=== PATIENT | male | born 1960 | race Caucasian/White ===

== ENCOUNTER → 2022-05-03 11:06 | Outpatient (BNVA) | payer OTHER, SELFPAY | PROVIDERS: Visit Provider Internal Medicine Cardiovascular Disease | DX: R06.02 Shortness of breath (principal); I48.20 Chronic atrial fibrillation, unspecified; I50.33 Acute on chronic diastolic (congestive) heart failure; N18.9 Chronic kidney disease, unspecified; Z79.01 Long term (current) use of anticoagulants; R07.9 Chest pain, unspecified | CPT/HCPCS: 80048; 83880; 84443; 85025 ==

== ENCOUNTER 2022-05-24 06:50 | Outpatient (CLI) | payer OTHER, SELFPAY ==
[2022-05-24 07:08] VITALS: BMI 51.1
--- NOTE | 2022-05-24 07:10 | ECG_ITS ---
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 Interpretive Statements NAME OF STUDY: TREADMILL STRESS TEST INDICATION: afib, PROCEDURE: At the baseline, the patient's blood pressure was 144/90 with a heart rate of 132. The baseline electrocardiogram showed atrial fibrillation with rapid ventricular rate of 132 bpm the patient exercised for 2 minutes and 59 seconds on a standard [place] protocol. Patient attained a maximum heart rate of 197 beats per minute(123% of the maximum predicted heart rate) with a blood pressure at the peak exercise of 149/113 mm Hg. The EKG at the peak exercise revealed no significant changes. Patient did not have any chest pain or any significant cardiac arrhythmias with the exercise During the recovery phase, there were no new changes. Blood pressure at the end of the recovery phase was 142/110 mm Hg with a heart rate of 146 per minute. CONCLUSION: 1. No significant ischemic changes with the treadmill exercise 2. Impaired exercise tolerance, attained a maximal 4.6 METs 3. Patient was found to be in atrial fibrillation with rapid ventricular rate at the baseline The study is inconclusive because of the arrhythmia. Consider doing a pharmacological stress test, once the heart rate is under control Electronically Signed On 05-25-2022 23:48:39 CDT by Cayden Philippe M.D. [email or web address]
[2022-05-24 07:38] VITALS: BP 142/110; PULSE 121
== END 2022-05-24 06:51 | disposition home or self-care (01) ==
LOC: CDL 06:59
PROVIDERS: Visit Provider Internal Medicine Cardiovascular Disease
DX: I48.91 Unspecified atrial fibrillation (principal)
CPT/HCPCS: 93017

== ENCOUNTER 2022-06-07 08:08 | Outpatient (CLI) | payer OTHER, SELFPAY ==
--- NOTE | 2022-06-07 08:45 | USCV_ITS ---
Guillermo, Michael Age: 61 Gender: M : 1960 Exam Date: 06/07/2022 08:53 Ordering Phys: Cayden Philippe MD ([email or web address]) Technologist: Exam Location: [facility] – [place] Indication: afib BP: 130 / 89 HR: 95 Rhythm: Sinus Technical Quality: Adequate MEASUREMENTS (Male / Female) Normal Values 2D ECHO LV Diastolic Diameter PLAX 4.4 cm 4.2 - 5.9 / 3.9 - 5.3 cm LV Systolic Diameter PLAX 3.4 cm IVS Diastolic Thickness 1.8 cm 0.6 - 1.0 / 0.6 - 0.9 cm IVS Systolic Thickness 2.0 cm LVPW Diastolic Thickness 1.6 cm 0.6 - 1.0 / 0.6 - 0.9 cm LVPW Systolic Thickness 1.8 cm LVOT Diameter 3.2 cm LV Ejection Fraction 2D Teich 41.3 % LV Ejection Fraction MOD 2C 67.9 % LV Ejection Fraction 2C AL 67.6 % LA Diameter 4.9 cm M-MODE Aortic Annulus Diameter 4.6 cm LA Ao Ratio MM 1.1 MV E Point Septal Separation 1.1 cm DOPPLER AV Peak Velocity 108.0 cm/s LVOT Peak Velocity 106.0 cm/s AV Area Cont Eq vti 8.5 cm squared AV Area Cont Eq pk 8.1 cm squared MV Area PHT 3.7 cm squared Mitral E to A Ratio 2.2 MV E' Velocity 54.0 cm/s Mitral E to MV E' Ratio 7.7 Mitral E to LV E' Lateral Ratio 6.4 Mitral E to LV E' Septal Ratio 10.0 TR Peak Velocity 160.7 cm/s TR Peak Gradient 10.3 mmHg TV Peak E Velocity 113.0 cm/s Right Atrial Pressure 3.0 mmHg Pulmonary Artery Systolic Pressu 13.3 mmHg PV Peak Velocity 104.0 cm/s FINDINGS Left Ventricle Left ventricle is normal in size. LV systolic function is grossly normal. Regional wall motion abnormalities cannot be accurately assessed because of poor. Diastolic function is indeterminate because of atrial fibrillation. Right Ventricle Normal in size and function Right Atrium Not well-visualized. Left Atrium Left atrium is dilated. Mitral Valve Structurally normal mitral valve. No stenosis or regurgitation. Aortic Valve Grossly normal. No significant stenosis or regurgitation. Tricuspid Valve Trace tricuspid regurgitation. Insufficient TR jet to calculate RVSP. Pulmonic Valve Not well-visualized Pericardium Grossly normal Aorta Normal in size IVC CONCLUSIONS Technically limited quality echocardiogram because of poor ultrasonic windows. Grossly LV systolic function is normal. Diastolic function is indeterminate because of atrial fibrillation. Left atrial enlargement noted Trace tricuspid regurgitation. Compared to prior echocardiogram from 2017, no significant changes seen. Marck Abraham MD (Electronically Signed) Final Date: 09 June 2022 11:58 S
== END 2022-06-07 08:09 | disposition home or self-care (01) ==
PROVIDERS: Visit Provider Internal Medicine Cardiovascular Disease
DX: I48.20 Chronic atrial fibrillation, unspecified (principal); R06.09 Other forms of dyspnea
CPT/HCPCS: 93306

== ENCOUNTER → 2022-08-02 10:58 | Outpatient (BNVA) | payer OTHER, SELFPAY | PROVIDERS: Visit Provider Internal Medicine Cardiovascular Disease | DX: R06.02 Shortness of breath (principal); I50.9 Heart failure, unspecified | CPT/HCPCS: 80048; 83880 ==

== ENCOUNTER → 2024-03-12 11:28 | Outpatient (BNVA) | payer OTHER, SELFPAY | PROVIDERS: PCP Family Medicine; Visit Provider Internal Medicine Cardiovascular Disease | DX: R06.02 Shortness of breath (principal); I10 Essential (primary) hypertension | CPT/HCPCS: 36415; 80048; 83880 ==

== ENCOUNTER 2024-10-07 15:01 | Outpatient (CLI) | payer OTHER, SELFPAY ==
--- NOTE | 2024-10-07 15:14 | CTR_ITS ---
PROCEDURE INFORMATION: Exam: CT Abdomen And Pelvis Without And With Contrast Exam date and time: 10/07/2024 3:37 PM Age: 64 years old Clinical indication: Other: Blood in urine TECHNIQUE: Imaging protocol: Computed tomography of the abdomen and pelvis without and with contrast. 3D rendering (Not supervised by radiologist): MIP and/or 3D reconstructed images were created by the technologist. Radiation optimization: All CT scans at this facility use at least one of these dose optimization techniques: automated exposure control; mA and/or kV adjustment per patient size (includes targeted exams where dose is matched to clinical indication); or iterative reconstruction. Contrast material: OMNI 350; Contrast volume: 100 ml; Contrast route: INTRAVENOUS (IV); COMPARISON: No relevant prior studies available. RADIATION DOSE METRICS: Total DLP (mGy-cm): 5126.85 FINDINGS: Liver: There are scattered calcified granulomas within the liver. No liver masses. There is diffuse fatty infiltration of the liver noted Gallbladder and biliary ducts: Normal. No calcified stones. No ductal dilation. Pancreas: Normal. No ductal dilation. Spleen: Scattered calcified splenic granulomas. No splenomegaly Adrenal glands: Normal. No mass. Kidneys and ureters: No hydronephrosis. The right kidney is unremarkable. There is a large heterogeneously enhancing left renal mass which measures 13.4 cm transverse by 13.5 cm cephalocaudal by 13 cm AP. There are prominent collaterals vessels noted within the left perinephric space. The right ureter is opacified throughout and appears within normal limits. The mid and distal left ureters not well opacified. Stomach and bowel: Unremarkable. No obstruction. No mucosal thickening. Appendix: No evidence of appendicitis. Intraperitoneal space: Unremarkable. No free air. No significant fluid collection. Vasculature: Note is made of a circumaortic left renal vein without evidence of thrombus. Prominent collaterals within the perisplenic region. No abdominal aortic aneurysm Lymph nodes: There are mildly enlarged left periaortic lymph nodes measuring up to 1.3 cm in short axis dimension. Urinary bladder: Unremarkable as visualized. Reproductive: Unremarkable as visualized. Bones/joints: Mild degenerative changes of the lumbar spine. No acute fractures or suspicious osseous lesions. Soft tissues: Unremarkable. CT/CT abdomen pelvis wo/w [id number] IMPRESSION: 1. Large heterogeneously enhancing left renal mass, highly suggestive of renal cell carcinoma 2. Mildly prominent retroperitoneal lymph nodes, concerning for metastatic disease. 3. Incidentally noted circumaortic left renal vein without evidence of thrombus
[2024-10-07 15:36] LABS: Blood Urea Nitrogen 15 mg/dL (8-23); Glomerular Filtration Rate 85.2 mL/min (90-130)
[2024-10-07] MEDS: iohexol 350 mg/mL 500 mL Btl (per mL) IV (15:51)
== END 2024-10-07 15:02 | disposition home or self-care (01) ==
LOC: RAD 15:05
PROVIDERS: Radiology Diagnostic Radiology; PCP Family Medicine; Visit Provider Family Medicine
DX: R31.9 Hematuria, unspecified (principal); N28.89 Other specified disorders of kidney and ureter; R59.0 Localized enlarged lymph nodes; K75.3 Granulomatous hepatitis, not elsewhere classified; R93.422 Abnormal radiologic findings on diagnostic imaging of left kidney; K76.0 Fatty (change of) liver, not elsewhere classified; R93.5 Abnormal findings on diagnostic imaging of other abdominal regions, including retroperitoneum; R93.89 Abnormal findings on diagnostic imaging of other specified body structures; M47.896 Other spondylosis, lumbar region
CPT/HCPCS: 74178; 82565; 84520

== ENCOUNTER 2024-11-13 06:10 | Outpatient (CLI) | payer OTHER, SELFPAY ==
--- NOTE | 2024-11-13 06:30 | USCV_ITS ---
Michael Li Age: 64 Gender: M : 1960 Exam Date: 11/13/2024 06:29 Ordering Phys: Vilma Moise Technologist: Exam Location: [facility] [place] Indication: cp BP: 120 / 80 HR: 83 Rhythm: Sinus Technical Quality: Adequate MEASUREMENTS (Male / Female) Normal Values 2D ECHO LV Diastolic Diameter PLAX 4.9 cm 4.2 - 5.9 / 3.9 - 5.3 cm IVS Diastolic Thickness 1.7 cm 0.6 - 1.0 / 0.6 - 0.9 cm IVS Systolic Thickness 2.9 cm LVPW Diastolic Thickness 1.9 cm 0.6 - 1.0 / 0.6 - 0.9 cm LVPW Systolic Thickness 1.7 cm LVOT Diameter 2.1 cm LV Ejection Fraction 2D Teich 62.0 % LV Ejection Fraction MOD 4C 55.9 % LV Ejection Fraction MOD 2C 62.1 % LV Ejection Fraction 2C AL 63.2 % LA Diameter 4.2 cm RA Systolic Volume 4C AL 97.4 ml RA Systolic Volume 4C MOD 99.5 ml Aorta at Sinotubular Diameter 3.6 cm IVC Diameter 3.2 cm M-MODE LA Ao Ratio MM 1.3 AV Cusp Separation MM 2.3 cm DOPPLER AV Peak Velocity 134.0 cm/s LVOT Peak Velocity 89.0 cm/s AV Area Cont Eq vti 3.1 cm squared AV Area Cont Eq pk 2.3 cm squared MV Peak Velocity 130.0 cm/s MV Area PHT 4.8 cm squared Mitral E to A Ratio 2.2 TV Peak Velocity 149.3 cm/s TR Peak Velocity 197.0 cm/s TR Peak Gradient 15.5 mmHg TV Peak E Velocity 77.0 cm/s PV Peak Velocity 99.0 cm/s FINDINGS Left Ventricle Mild concentric left ventricular hypertrophy. LV ejection fraction of 60%. No gross wall motion abnormalities. Right Ventricle The right ventricle is normal in size and function. Right Atrium Mildly increased right atrial size. Left Atrium Mildly increased left atrial size. Mitral Valve Mild mitral valve regurgitation. Aortic Valve Thickened aortic valve. Tricuspid Valve Trace tricuspid valve regurgitation. Pulmonic Valve Pulmonic valve not well visualized. Pericardium Normal pericardium without effusion. Aorta Normal ascending aorta dimension. IVC Inferior vena cava not visualized. CONCLUSIONS Mild concentric left ventricular hypertrophy. LV ejection fraction of 60%. No gross wall motion abnormalities. Mild biatrial enlargement Mild mitral valve regurgitation. Trace tricuspid valve regurgitation. Thickened aortic valve. Estimated pulmonary artery peak systolic pressure within normal limits There is no pericardial effusion. Compared to the study from 06/07/2022, there may not be a significant change Dr Cayden Philippe MD [facility] (Electronically Signed) Final Date: 14 November 2024 13:19 S
[2024-11-13 08:43] VITALS: BMI 46.8
--- NOTE | 2024-11-13 08:44 | NMCV_ITS ---
NM enoch perf SPECT r/s* [id number] Michael Li Age: 64 Gender: M : 1960 Exam Date: 11/13/2024 08:46 Ordering Phys: Vilma Moise Technologist: AYO Marroquin Exam Location: [facility] Indications: cp STRESS TEST Please see separate stress test report in [facility] for full findings IMAGE PROTOCOL Rest/Stress 1 Lexiscan Day Radiopharmaceutical Dose (mCi) Administration Site Administered by Rest: Tc-99m 10.6 IV Alise Anne Marie, [employer]ATRE MANAGER Sestamibi Stress:Tc-99m 33.0 IV Alise Anne Marie, CINEMA OR THEATRE MANAGER Sestamibi Rest: 13-Nov-2024 60 Discovery 630 Stress: 13-Nov-2024 30 Discovery 630 0.4mg Lexiscan. Images obtained in supine and prone position. SPECT RESULTS Technical Quality: Good Raw Data Analysis: Soft tissue attenuation Image Corrections: No attenuation or motion correction applied Summed Stress Score: 2 Summed Rest Score: 1 Summed Difference Score: 1 PERFUSION FINDINGS A small moderate area of slightly decreased tracer uptake involving the mid inferior and mid inferolateral regions. Some reversibility was noted in the inferolateral region with the supine imaging. However with the prone imaging, no significant reversibility was noted FUNCTIONAL RESULTS (calculated via Gated SPECT) Stress Image LV EF (%): 51 Stress EDV (mL):158 TID: 1.27 Stress ESV (mL):77 FUNCTIONAL FINDINGS: Segmental wall motion analysis revealing no gross wall motion normalities. The transient ischemic dilatation ratio was 1.27 IMPRESSIONS 1. Myocardial perfusion imaging revealing small to moderate area of slightly decreased tracer uptake involving the inferior mid inferior and mid inferolateral segments with slight reversibility suggesting myocardial scarring with ischemia in the distribution of the left circumflex artery. However because the inconsistency with the prone imaging, most likely is artifactual. The elevated transient ischemic dilatation ratio, may suggest endocardial ischemia, clinical correlation recommended. 2. Normal LV ejection fraction of 51% 3. LV wall motion analysis revealing no gross wall motion normalities 4. Mildly dilated LV cavity with an end-systolic volume of 77 mL No similar previous studies are available for comparison Dr Cayden Philippe MD [facility] (Electronically Signed) Final Date: 13 November 2024 13:25 S
--- NOTE | 2024-11-13 08:44 | ECG_ITS ---
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 Interpretive Statements Lung unchanged pre/post procedure; Intraprocedure shortess of breath; Symptoms resoled by discharge PROCEDURE: At the baseline, the EKG revealed atrial fibrillation with a nonspecific T wave changes. Ventricular rate of 90 bpm. The baseline heart was 90 bpm with a blood pressue of 153/89 mm of Hg Lexiscan was infused over a period of 20 seconds. A total of 0.4 milligrams of Lexiscan was infused. The stress phase was continued for a total of 5 minutes. Heart rate at the end of the stress phase was 95 bpm with a blood pressure 140/90 mm of Hg. The EKG at the peak infusion revealed no significant changes. Because of the heavy baseline artifact, the EKG is difficult to interpret Sestamibi was injected 20 seconds after the Lexiscan infusion. Heart rate at the end of the recovery phase was 86 bpm with a blood pressure of 144/92 mm of Hg. CONCLUSION: 1. No significant EKG changes with the LexiScan infusion 2. No LexiScan induced chest pain or cardiac arrhythmia 3. Normal blood pressure and heart rate response 4. Sestamibi/sestamibi perfusion scan pending; see separate report. Electronically Signed On 11-18-2024 06:59:19 TESTER VIBRATOR EQUIPMENT by Cayden Philippe M.D. [email or web address]
[2024-11-13] MEDS: regadenoson 0.4 Mg/5 ml Syringe IVP (09:19)
[2024-11-13 09:29] VITALS: BP 144/92; PULSE 90
== END 2024-11-13 06:11 | disposition home or self-care (01) ==
LOC: RAD 06:14 → CARD 07:57 → CDL 08:11
PROVIDERS: PCP Family Medicine; Visit Provider Nurse Practitioner Family
DX: I10 Essential (primary) hypertension (principal); I50.9 Heart failure, unspecified; I48.20 Chronic atrial fibrillation, unspecified; R93.1 Abnormal findings on diagnostic imaging of heart and coronary circulation; I51.7 Cardiomegaly; I35.8 Other nonrheumatic aortic valve disorders; I34.0 Nonrheumatic mitral (valve) insufficiency
CPT/HCPCS: 78452; 93017; 93306; A9500; J2785

== ENCOUNTER 2025-01-28 11:30 | Oncology outpatient (recurring) (ONCR) | payer OTHER, SELFPAY ==
[2025-01-28 12:00] LABS: Basophils % 0.5 %; Eosinophils # 0.2 10^3/uL (0.0-0.8); Eosinophils % 2.4 %; Hematocrit 43.9 % (37-53); Lymphocytes # 1.9 10^3/uL (0.8-4.8); Lymphocytes % 24.3 %; Mean Corpuscular HGB Conc 32.6 g/dL (30-55); Mean Corpuscular Hemoglobin 28.4 pg (27-33); Mean Corpuscular Volume 87.3 fl (82-101); Mean Platelet Volume 10.2 fL (7.4-10.4); Monocytes # 0.7 10^3/uL (0.2-0.9); Monocytes % 9.1 %; Neutrophils # 4.92 10^3/uL (1.8-7.7); Neutrophils % 62.3 %; Nucleated Red Blood Cells % 0 %; Platelet Count 290 10^3/cmm (157-399); Red Blood Count 5.03 10^6/uL (3.85-5.65); Red Cell Distribution Width 14.2 % (12.1-15.1)
[2025-01-28 12:27] LABS: Alanine Aminotransferase 24 U/L (0-41); Albumin Level 3.6 g/dL (3.5-5.2); Alkaline Phosphatase 100 U/L (40-130); Anion Gap 13.3 (5-19); Aspartate Amino Transferase 19 U/L (0-40); Blood Urea Nitrogen 25 mg/dL (8-23); Calcium 9.5 mg/dL (8.5-10.5); Carbon Dioxide 25 mmol/L (22-29); Chloride 103 mmol/L (98-107); Cortisol Random 5.43 ug/dL (2.47-19.5); Creatinine Clr Calc Pharmacy 121.1922; Globulin 3.4 g/dL (1.3-4.6); Glomerular Filtration Rate 67.6 mL/min (90-130); Glucose 140 mg/dL (65-115); Osmolality Calculated 291 mOsm/kg (285-295); Potassium 4.3 mmol/L (3.5-5.1); Sodium 137 mmol/L (136-145); Thyroid Stimulating Hormone 1.71 uIU/mL (0.27-4.20); Total Bilirubin 0.3 mg/dL (0.15-1.2)
[2025-01-28] MEDS: pembrolizumab 200 MG in sodium chloride 0.9% 250 ML 516 MG IV (14:01)
[2025-01-28 14:56] VITALS: BP 153/96; PULSE 98; TEMP 36.7; O2SAT 95
== END 2025-01-28 23:59 | disposition home or self-care (01) ==
PROVIDERS: Nurse Practitioner Family; PCP Family Medicine; Visit Provider Internal Medicine Medical Oncology
DX: Z53.9 Procedure and treatment not carried out, unspecified reason (principal); Z51.12 Encounter for antineoplastic immunotherapy; C64.2 Malignant neoplasm of left kidney, except renal pelvis; Z79.899 Other long term (current) drug therapy
CPT/HCPCS: 80053; 82533; 84443; 85025; 96413; A4222; J7050; J9271

== ENCOUNTER 2025-02-18 12:30 | Oncology outpatient (recurring) (ONCR) | payer OTHER, SELFPAY ==
[2025-02-04 15:05] LABS: Basophils # 0.1 10^3/uL (0.0-0.1); Basophils % 0.8 %; Eosinophils # 0.2 10^3/uL (0.0-0.8); Eosinophils % 2.2 %; Hematocrit 46.4 % (37-53); Lymphocytes % 21.2 %; Mean Corpuscular HGB Conc 32.3 g/dL (30-55); Mean Corpuscular Hemoglobin 28.5 pg (27-33); Monocytes # 1.1 10^3/uL (0.2-0.9); Monocytes % 11.1 %; Neutrophils # 6.12 10^3/uL (1.8-7.7); Neutrophils % 63.6 %; Nucleated Red Blood Cells % 0 %; Platelet Count 317 10^3/cmm (157-399); Red Blood Count 5.27 10^6/uL (3.85-5.65); Red Cell Distribution Width 14.1 % (12.1-15.1); White Blood Count 9.63 10^3/uL (3.29-11.43)
[2025-02-04 15:32] LABS: Alanine Aminotransferase 27 U/L (0-41); Albumin Level 3.8 g/dL (3.5-5.2); Alkaline Phosphatase 99 U/L (40-130); Anion Gap 14.3 (5-19); Aspartate Amino Transferase 19 U/L (0-40); Blood Urea Nitrogen 26 mg/dL (8-23); Calcium 10.1 mg/dL (8.5-10.5); Carbon Dioxide 23 mmol/L (22-29); Chloride 101 mmol/L (98-107); Globulin 3.5 g/dL (1.3-4.6); Glomerular Filtration Rate 67.6 mL/min (90-130); Glucose 130 mg/dL (65-115); Osmolality Calculated 285 mOsm/kg (285-295); Potassium 4.3 mmol/L (3.5-5.1); Sodium 134 mmol/L (136-145); Thyroid Stimulating Hormone 1.99 uIU/mL (0.27-4.20); Total Bilirubin 0.3 mg/dL (0.15-1.2); Total Protein 7.3 g/dL (6.6-8.7)
[2025-02-18 12:42] LABS: Basophils % 0.6 %; Eosinophils # 0.2 10^3/uL (0.0-0.8); Eosinophils % 2.2 %; Hematocrit 43.9 % (37-53); Lymphocytes # 1.5 10^3/uL (0.8-4.8); Lymphocytes % 21.6 %; Mean Corpuscular HGB Conc 33.3 g/dL (30-55); Mean Corpuscular Volume 87.3 fl (82-101); Mean Platelet Volume 10.3 fL (7.4-10.4); Monocytes # 0.9 10^3/uL (0.2-0.9); Monocytes % 12.7 %; Neutrophils % 62.2 %; Nucleated Red Blood Cells % 0 %; Platelet Count 228 10^3/cmm (157-399); Red Blood Count 5.03 10^6/uL (3.85-5.65); Red Cell Distribution Width 14.2 % (12.1-15.1); White Blood Count 6.91 10^3/uL (3.29-11.43)
[2025-02-18 13:16] LABS: Alanine Aminotransferase 36 U/L (0-41); Albumin Level 3.6 g/dL (3.5-5.2); Alkaline Phosphatase 114 U/L (40-130); Anion Gap 14.6 (5-19); Aspartate Amino Transferase 22 U/L (0-40); Blood Urea Nitrogen 22 mg/dL (8-23); Calcium 10.2 mg/dL (8.5-10.5); Carbon Dioxide 22 mmol/L (22-29); Chloride 101 mmol/L (98-107); Globulin 3.3 g/dL (1.3-4.6); Glomerular Filtration Rate 85.2 mL/min (90-130); Glucose 371 mg/dL (65-115); Osmolality Calculated 294 mOsm/kg (285-295); Potassium 4.6 mmol/L (3.5-5.1); Sodium 133 mmol/L (136-145); Thyroid Stimulating Hormone 0.02 uIU/mL (0.27-4.20); Total Bilirubin 0.5 mg/dL (0.15-1.2); Total Protein 6.9 g/dL (6.6-8.7)
[2025-02-18] MEDS: pembrolizumab 200 MG in sodium chloride 0.9% 250 ML 516 MG IV (14:00)
[2025-02-18 14:36] VITALS: BP 127/83; PULSE 108; RESP 18; TEMP 36.9; O2SAT 94
== END 2025-02-18 23:59 | disposition home or self-care (01) ==
PROVIDERS: Nurse Practitioner Family; PCP Family Medicine; Visit Provider Internal Medicine Medical Oncology
DX: Z53.9 Procedure and treatment not carried out, unspecified reason (principal); Z51.12 Encounter for antineoplastic immunotherapy; C64.9 Malignant neoplasm of unspecified kidney, except renal pelvis; Z79.899 Other long term (current) drug therapy
CPT/HCPCS: 36415; 80053; 84443; 85025; 96413; A4222; J7050; J9271

== ENCOUNTER 2025-02-28 09:03 | Inpatient (IN) | payer OTHER, SELFPAY ==
[2025-02-28] VITALS (35 sets, daily range): BP systolic 104–161; BP diastolic 56–102; PULSE 86–150; RESP 10–21; TEMP 36.6–37.1; O2SAT 74–98; BMI 48.0; BMI 44.4
--- NOTE | 2025-02-28 09:14 | ECG_ITS ---
[email or web address] Test Date: 2025-02-28 Pat Name: Harvey Li (Mark) Department: Room: Gender: Male Aurist: : 1960 Requested By: Buster Hernández Order Number: [id number] Antonina MD: Marck Abraham M.D. Measurements Intervals Ida Rate: 130 P: 0 NV: 0 QRS: -1 QRSD: 107 T: -18 QT: 262 QTc: 386 Interpretive Statements ATRIAL FIBRILLATION WITH RAPID VENTRICULAR RESPONSE NONSPECIFIC T-WAVE ABNORMALITY Compared to ECG 03/06/2017 13:04:33 T-wave abnormality now present ST (T wave) deviation no longer present Electronically Signed On 03-04-2025 11:46:51 CDT by Marck Abraham M.D. [id number]
--- NOTE | 2025-02-28 09:14 | CTR_ITS ---
PROCEDURE INFORMATION: Exam: CT Head Without Contrast Exam date and time: 02/28/2025 9:48 AM Age: 64 years old Clinical indication: Injury or trauma; Fall; Blunt trauma (contusions or hematomas); Injury details: Patient states passed out yesterday and hit the floor. Patient has small garner to forehead where he hit; Patient is on blood thinners for afib. PT had kidney removed at [place] in November. ; Additional info: Fall/loc. No history of surgery is provided. TECHNIQUE: Imaging protocol: Computed tomography of the head without contrast. 317image(s) are provided. Radiation optimization: All CT scans at this facility use at least one of these dose optimization techniques: automated exposure control; mA and/or kV adjustment per patient size (includes targeted exams where dose is matched to clinical indication); or iterative reconstruction. Other technique: Axial images are available with sagittal and coronal reconstruction views. Automated dose exposure control is utilized. The DLP is 1258.65. COMPARISON: CT cervical spin wo con* [id number] 02/28/2025 9:[address] head is currently available. RADIATION DOSE METRICS: Total DLP (mGy-cm): 712.8 FINDINGS: Brain: There are moderate cerebral atrophic changes overall.There are chronic periventricular white matter changes present.No mass effect or layering hemorrhage is appreciated. Teresa, white matter differentiation appears maintained. Cerebral ventricles: No hydrocephalus is appreciated. Paranasal sinuses: There is complete opacification of the left maxillary sinus overall demonstrated. There appears to be some patchy ethmoidal air cell adjacent of the left with some lobulation. Some processes including underlying polyposis could also present in this fashion. The remainder of the paranasal sinuses appear otherwise well-aerated. There is some rightward nasal septal deviation and spurring present. Mastoid air cells: The mastoid air cells appear well-aerated overall. Orbital cavities: Symmetric appearance of the orbital soft tissues is demonstrated. Teeth: There appear to be some chronic dental, periodontal related changes present. Bones: No cranial fracture or dislocation is appreciated. There does appear to be some subtle irregularity suggestive of nondisplaced nasal bone fracture anteriorly. Soft tissues: No radiopaque foreign body or subcutaneous emphysema is appreciated. There is some subtle prominence of the soft tissues overall. There is some subcutaneous sebaceous cystic appearance posteriorly. Vasculature: Atherosclerotic vascular changes are demonstrated. There is some motion artifact present. CT/CT head wo con* [id number] IMPRESSION: No mass effect, layering hemorrhage or hydocephalus is demostrated. No acute intracranial changes are appreciated.
[2025-02-28 09:25] LABS: Basophils # 0.1 10^3/uL (0.0-0.1); Basophils % 0.7 %; Eosinophils # 0.1 10^3/uL (0.0-0.8); Eosinophils % 0.6 %; Hematocrit 47.5 % (37-53); Lymphocytes % 17.8 %; Mean Corpuscular HGB Conc 32.8 g/dL (30-55); Mean Corpuscular Hemoglobin 29.2 pg (27-33); Mean Platelet Volume 11.1 fL (7.4-10.4); Monocytes # 1.3 10^3/uL (0.2-0.9); Monocytes % 11.6 %; Neutrophils # 7.59 10^3/uL (1.8-7.7); Neutrophils % 68.3 %; Nucleated Red Blood Cells % 0 %; Platelet Count 267 10^3/cmm (157-399); Red Blood Count 5.34 10^6/uL (3.85-5.65); Red Cell Distribution Width 13.5 % (12.1-15.1); White Blood Count 11.12 10^3/uL (3.29-11.43)
--- NOTE | 2025-02-28 09:28 | XR_ITS ---
WS: [id number] Portable AP upright chest, 02/28/2025 Clinical Data: dyspnea/cough Comparison: Portable chest, 03/06/2017 Findings: No nodules, masses or effusions are seen. The heart is slightly enlarged. The pulmonary vascularity is not increased. No pneumonia or pneumothorax is seen. The aortic arch and descending thoracic aorta show tortuosity. There are monitor leads on the chest wall. There is a minimal dextroscoliosis of the thoracic spine. XR/XR chest 1V portable [id number] Impression: Cardiomegaly and atherosclerosis.
--- NOTE | 2025-02-28 09:29 | CTR_ITS ---
PROCEDURE INFORMATION: Exam: CT Cervical Spine Without Contrast Exam date and time: 02/28/2025 9:48 AM Age: 64 years old Clinical indication: Injury or trauma; Fall; Blunt trauma; Injury details: Patient states passed out yesterday and hit the floor. Patient has small garner to forehead where he hit; Patient is on blood thinners for afib. PT had kidney removed at [place] in November. TECHNIQUE: Imaging protocol: Computed tomography of the cervical spine without contrast. 436image(s) are provided. Radiation optimization: All CT scans at this facility use at least one of these dose optimization techniques: automated exposure control; mA and/or kV adjustment per patient size (includes targeted exams where dose is matched to clinical indication); or iterative reconstruction. COMPARISON: 1. CR XR chest 1V portable [id number] 02/28/2025 9:[address] head wo con* [id number] 02/28/2025 9:48 AM. No previous cervical spine studies are currently available. RADIATION DOSE METRICS: Total DLP (mGy-cm): 712.8 FINDINGS: Bones: No displaced cervical fracture or dislocation is appreciated. There is some cervical spondylosis, degenerative appearance overall.There is facet, uncovertebral hypertrophy demonstrated. There appears to be some bone island related changes. Discs/Spinal canal/Neural foramina: No hyperdense spinal canal fluid is appreciated. Pharynx: There appear to be some tonsillar fossa level chronic soft tissue calcifications bilaterally. Lungs: No lobar consolidation is appreciated.No pneumothorax is appreciated. Lymph nodes: There are some subcentimeter, reactive appearing cervical lymph nodes overall. Vasculature: The neck vessels appear relatively symmetric overall. Soft tissues: No radiopaque foreign body or subcutaneous emphysema is appreciated. No abnormal prevertebral soft tissue thickening is appreciated.No subcutaneous fluid collections are appreciated. There are some chronic appearing soft tissue calcifications present posteriorly. There is heterogeneity of the thyroid gland with enlarged appearance some calcific related change left more so than right. Consider thyroid ultrasound. There is some motion artifact present. CT/CT cervical spin wo con* [id number] IMPRESSION: Cervical spine alignment is maintained with no fracture or dislocation appreciated.
--- NOTE | 2025-02-28 09:30 | W.ED.SYNCOPE ---
HPI - Syncope General: Chief Complaint: Syncope Stated Complaint: fall/lost consciousness Time Seen by Provider: 02/28/25 09:08 History of Present Illness: 64-year-old male presents emergency room with episodes of weakness fall and a syncopal episode. Patient has a known history of A-fib with RVR. Associated symptoms: Deny abdominal pain, chest pain or fever(s) Related Data Home Medications ?Medication ?Instructions ?Recorded ?Confirmed omega-3 fatty acids 1,000 mg 1,000 mg PO .qod 05/03/22 02/28/25 capsule metoprolol succinate 100 mg 100 mg PO DAILY 09/20/24 02/28/25 tablet,extended release 24 hr acetaminophen 325 mg capsule 325 mg PO QID PRN Pain 01/16/25 02/28/25 antiarthritic combination no.2 900 900 mg PO .everyotherday 01/16/25 02/28/25 mg tablet (glucosamine-chondroitin) apixaban 5 mg tablet (Eliquis) 5 mg PO DAILY 01/16/25 02/28/25 semaglutide 0.25 mg or 0.5 mg (2 0.25 mg SUBCUT Q7D 01/16/25 02/28/25 mg/3 mL) subcutaneous pen injector (Ozempic) tamsulosin 0.4 mg capsule (Flomax) 0.4 mg PO BID 01/16/25 02/28/25 atorvastatin 20 mg tablet 20 mg PO DAILY 02/28/25 02/28/25 metformin 1,000 mg tablet 1,000 mg PO BID 02/28/25 02/28/25 potassium chloride 20 mEq See Rx Instructions .Route .COMPLEX 02/28/25 02/28/25 tablet,extended release(part/cryst) Previous Rx's ?Medication ?Instructions ?Recorded Diabetic Shoes with 3 Custom #1 ea 12/22/23 Inserts furosemide 40 mg tablet See Rx Instructions .Route 12/31/24 .COMPLEX #120 tabs prochlorperazine maleate 10 mg 10 mg PO Q4H PRN mild nausea #30 01/16/25 tablet (Compazine) tabs Allergies Allergy/AdvReac Type Severity Reaction Status Date / Time shellfish derived Allergy Intermediate ADR-Vomitin Verified 02/18/25 12:39 g Review of Systems Const: Denies: fever(s) or chills Card: Denies: chest pain Resp: Denies: dyspnea GI: Denies: abdominal pain : Denies: dysuria, urinary frequency or urinary urgency Musc: Denies: neck pain or back pain Skin/Breast: Denies: rash PFSH ED PFSH: Medical History Palpitations KELLEE (obstructive sleep apnea) Dyspnea on exertion Peripheral edema Chest tightness Chest pain CHF (congestive heart failure) Atrial fibrillation HTN (hypertension) Surgical History H/O partial cystectomy Family History Father Congenital heart disease Cancer Lung disease Grandfather Cancer Grandmother Cancer Denies family history of Diabetes CAD (coronary artery disease) Clotting disorder Dementia Chronic kidney disease (CKD) Suicide Anesthesia complication Bleeding disorder Stroke Social History Smoking and tobacco/nicotine status: former use of tobacco/nicotine Alcohol intake: current Alcohol intake frequency: few times a month Substance/Drug Use: never Physical Exam Const: GENERAL APPEARANCE: cooperative ORIENTATION/CONSCIOUSNESS: Yes awake, Yes oriented to person, Yes oriented to place and Yes oriented to time HENMT: COMMON NORMALS: normocephalic and hearing grossly normal bilaterally HEAD & SCALP: normocephalic OTHER: Abrasion center of the forehead and on the left zygomatic arch Resp: COMMON NORMALS: normal respiratory effort, No retractions, No use of accessory muscles and clear to auscultation bilaterally AUSCULTATION: clear to auscultation bilaterally Cardio: COMMON NORMALS: No murmurs present (Cardio) RATE: tachycardic RHYTHM: abnormal rhythm irregularly irregular GI: COMMON NORMALS: Soft to palpation and No hepatosplenomegaly present AUSCULTATION: Yes normoactive bowel sounds PALPATION: Yes Soft to palpation, No Tenderness to palpation present (GI), No Guarding due to palpation present (GI) and Yes No hepatosplenomegaly present Extremity: COMMON NORMALS: normal to inspection, capillary refill normal, no clubbing, cyanosis or edema, no calf tenderness and no pedal edema Neuro: SENSORIUM/ORIENTATION: Yes oriented to person, Yes oriented to place and Yes oriented to time Skin: COMMON NORMALS: no rashes or lesions noted GENERAL SKIN EXAM: no rashes or lesions noted Course Vital Signs: Vital signs: Vital Signs Temperature 97.9 F 02/28/25 09:08 Pulse Rate 134 H 02/28/25 10:51 Respiratory Rate 17 02/28/25 10:51 Blood Pressure 140/85 02/28/25 10:51 Pulse Oximetry 97 02/28/25 10:51 Oxygen Delivery Me thod Room Air 02/28/25 10:51 MDM - Syncope Medical Decision Making Patient presents initially look like he was in A-fib with RVR he had not taken his medicines this morning we gave him metoprolol IV and his oral dose of metoprolol however his laboratories came back his anion gap was elevated his blood glucose was elevated. In talking to him he stopped taking his Ozempic because he is on Keytruda ABG shows metabolic acidosis ketones positive he is in DKA he is getting IV fluids use initiated insulin and insulin drip discussed with hospitalist orders written for admission to the ICU. CT head and neck were unremarkable. Medical Records I reviewed the patient's medical records. Lab Data I reviewed the patient's lab results. 02/28/25 09:13 02/28/25 09:[address] 02/28/25 09:14 IMPRESSION: No mass effect, layering hemorrhage or hydocephalus is demostrated. No acute intracranial changes are appreciated. Chest X-Ray 02/28/25 09:28 Impression: Cardiomegaly and atherosclerosis. Cervical Spine CT 02/28/25 09:29 IMPRESSION: Cervical spine alignment is maintained with no fracture or dislocation appreciated. Laboratory Results WBC 11.12 10^3/uL (3.29-11.43) 02/28/25 09:13 RBC 5.34 10^6/uL (3.85-5.65) 02/28/25 09:13 Hgb 15.60 g/dL (11.27-16.99) 02/28/25 09:13 Hct 47.5 % (37-53) 02/28/25 09:13 MCV 89.0 fl (82-101) 02/28/25 09:13 MCH 29.2 pg (27-33) 02/28/25 09:13 MCHC 32.8 g/dL (30-55) 02/28/25 09:13 RDW 13.5 % (12.1-15.1) 02/28/25 09:13 Plt Count 267 10^3/cmm (157-399) 02/28/25 09:13 MPV 11.1 fL (7.4-10.4) H 02/28/25 09:13 Neut % (Auto) 68.3 % 02/28/25 09:13 Lymph % (Auto) 17.8 % 02/28/25 09:13 Bertie % (Auto) 11.6 % 02/28/25 09:13 Eos % (Auto) 0.6 % 02/28/25 09:13 Baso % (Auto) 0.7 % 02/28/25 09:13 Neut # (Auto) 7.59 10^3/uL (1.8-7.7) 02/28/25 09:13 Lymph # (Auto) 2.0 10^3/uL (0.8-4.8) 02/28/25 09:13 Bertie # (Auto) 1.3 10^3/uL (0.2-0.9) H 02/28/25 09:13 Eos # (Auto) 0.1 10^3/uL (0.0-0.8) 02/28/25 09:13 Baso # (Auto) 0.1 10^3/uL (0.0-0.1) 02/28/25 09:13 Nucleated RBC % (auto) 0 % 02/28/25 09:13 Nucleated RBCs # 0.0 /100WBC 02/28/25 09:13 Specimen Type Arterial 02/28/25 11:00 Sample Site Radial, right 02/28/25 11:00 ABG pH 7.23 (7.35-7.45) L 02/28/25 11:00 ABG pCO2 31.2 mmHg (35-45) L 02/28/25 11:00 ABG pO2 93.3 mmHg (80.0-100.0) 02/28/25 11:00 ABG PO2/FiO2 Ratio 444 02/28/25 11:00 ABG HCO3 12.9 mmol/L (22-26) L 02/28/25 11:00 ABG O2 Saturation 96.7 02/28/25 11:00 ABG Base Excess -13.3 mmol/L (-2.0-2.0) L 02/28/25 11:00 Pepe Test Pos 02/28/25 11:00 A-a O2 Gradient 2.1 mmHg (5-10) L 02/28/25 11:00 Hematocrit 47.8 % (42-52) 02/28/25 11:00 Hgb O2 Saturation 94.3 % (95-100) L 02/28/25 11:00 Carboxyhemoglobin 1.4 %THgb (0.4-20.1) 02/28/25 11:00 Methemoglobin 1.1 % (0.4-1.5) 02/28/25 11:00 Total Hemoglobin 15.6 g/dL (14-18) 02/28/25 11:00 Sodium 128.0 mmol/L (131-143) L 02/28/25 11:00 Potassium 5.2 mmol/L (3.5-5.0) H 02/28/25 11:00 Glucose 441.0 mg/dL (70-115) H 02/28/25 11:00 Ionized Calcium 1.5 mmol/L (1.1-1.4) H 02/28/25 11:00 O2 Delivery Device Room air 02/28/25 11:00 FiO2 21.0 % 02/28/25 11:00 Nuclear Medicine Technician ID [place] 02/28/25 11:00 Sodium 131 mmol/L (136-145) L 02/28/25 09:13 Potassium 5.3 mmol/L (3.5-5.1) H 02/28/25 09:13 Chloride 94 mmol/L (98-107) L 02/28/25 09:13 Carbon Dioxide 13 mmol/L (22-29) L 02/28/25 09:13 Anion Gap 29.3 (5-19) H 02/28/25 09:13 BUN 40 mg/dL (8-23) H 02/28/25 09:13 Creatinine 1.3 mg/dL (0.7-1.2) H 02/28/25 09:13 GFR Calculation 55.8 mL/min (90-130) L 02/28/25 09:13 Glucose 428 mg/dL (65-115) H 02/28/25 09:13 POC Glucose 443 mg/dL (70-110) H 02/28/25 11:23 Calculated Osmolality 300 mOsm/kg (285-295) H 02/28/25 09:13 Calcium 11.5 mg/dL (8.5-10.5) H 02/28/25 09:13 Total Bilirubin 0.7 mg/dL (0.15-1.2) 02/28/25 09:13 AST 26 U/L (0-40) 02/28/25 09:13 ALT 32 U/L (0-41) 02/28/25 09:13 Alkaline Phosphatase 113 U/L (40-130) 02/28/25 09:13 Troponin T Baseline 32 ng/L (0-15) H 02/28/25 09:13 Total Protein 7.8 g/dL (6.6-8.7) 02/28/25 09:13 Albumin 3.7 g/dL (3.5-5.2) 02/28/25 09:13 Globulin 4.1 g/dL (1.3-4.6) 02/28/25 09:13 Urine Color Yellow (Yellow) 02/28/25 10:24 Urine Appearance Clear (CLEAR) 02/28/25 10:24 Urine pH 5.5 (5-7) 02/28/25 10:24 Ur Specific [place] 1.028 (1.005-1.030) 02/28/25 10:24 Urine Protein 1+ (Negative) A 02/28/25 10:24 Urine Glucose (UA) 3+ (Normal) H 02/28/25 10:24 Urine Ketones 3+ (Negative) H 02/28/25 10:24 Urine Blood Trace (Negative) A 02/28/25 10:24 Urine Nitrate Negative (Negative) 02/28/25 10:24 Urine Bilirubin Negative (Negative) 02/28/25 10:24 Urine Urobilinogen 1.0 mg/dL (Negative) 02/28/25 10:24 Ur Leukocyte Esterase Negative (Negative) 02/28/25 10:24 Urine RBC 0-2 /hpf (0-2) 02/28/25 10:24 Urine WBC 0-5 /hpf (0-5) 02/28/25 10:24 Ur Squamous Epith Cells 0-5 /hpf (0-5) 02/28/25 10:24 Amorphous Sediment Not Reportable 02/28/25 10:24 Urine Bacteria None seen /hpf (NONE) 02/28/25 10:24 Hyaline Casts 13.22 /lpf 02/28/25 10:24 Fine Granular Casts 0-4 /lpf H 02/28/25 10:24 Serum Ketones Positive (Negative) H 02/28/25 09:13 All radiology interpretation(s) finalized by discharge Discharge Plan Discharge Patient Disposition: Admitted As Inpatient Clinical Impression: DKA (diabetic ketoacidosis), Type 2 diabetes mellitus, Renal cell cancer, Atrial fibrillation with RVR Condition: Stable Coding Level of Care Code ED Manager Mental Health for Gina Beckham
[2025-02-28] MEDS: metoprolol succinate ER (24 HR) 50 mg Tablet 100 MG PO (09:41)
[2025-02-28] MEDS: metoprolol tartrate 1 mg/1 mL SDV 5 mL 2.5 MG IVP (09:44)
--- NOTE | 2025-02-28 09:44 | PC.NURSE ---
pt informed of need for urine sample upon arrival to room, provided urinal; check on pt @0950, pt unable to urinate at this time, denies offer for straight cath
[2025-02-28 09:47] LABS: Troponin(5th) Baseline 32 ng/L (0-15)
[2025-02-28 09:50] LABS: Alanine Aminotransferase 32 U/L (0-41); Albumin Level 3.7 g/dL (3.5-5.2); Alkaline Phosphatase 113 U/L (40-130); Anion Gap 29.3 (5-19); Aspartate Amino Transferase 26 U/L (0-40); Blood Urea Nitrogen 40 mg/dL (8-23); Calcium 11.5 mg/dL (8.5-10.5); Carbon Dioxide 13 mmol/L (22-29); Chloride 94 mmol/L (98-107); Creatinine Clr Calc Pharmacy 101.8009; Globulin 4.1 g/dL (1.3-4.6); Glomerular Filtration Rate 55.8 mL/min (90-130); Glucose 428 mg/dL (65-115); Osmolality Calculated 300 mOsm/kg (285-295); Potassium 5.3 mmol/L (3.5-5.1); Sodium 131 mmol/L (136-145); Total Bilirubin 0.7 mg/dL (0.15-1.2); Total Protein 7.8 g/dL (6.6-8.7)
--- NOTE | 2025-02-28 10:22 | PC.PHAR ---
Pt is currently taking Keytruda infusions every 3 weeks. 2nd infusion was last Monday02/18/25.
[2025-02-28 10:31] LABS: Bilirubin Urine Negative (Negative); Blood Urine Trace (Negative); Glucose Urine UA 3+ (Normal); Ketones Urine 3+ (Negative); Leukocyte Esterase Urine Negative (Negative); Nitrate Urine Negative (Negative); Protein Urine 1+ (Negative); Specific Gravity, Urine 1.028 (1.005-1.030); Urine Appearance Clear (CLEAR); Urine Color Yellow (Yellow); pH Urine 5.5 (5-7)
[2025-02-28 10:37] LABS: Add Urine Microscopic? YES; Bacteria Urine None Seen /hpf; Hyaline Casts Urine 13.22 /lpf; RBC Urine 0-2 /hpf (0-2); Squamous Epithelial Cell Urine 0-5 /hpf (0-5); WBC Urine 0-5 /hpf (0-5)
[2025-02-28 10:45] LABS: UA Slide Review UA Slide Review Perf
[2025-02-28 10:46] LABS: Fine Granular Casts Urine 0-4 /lpf
[2025-02-28 10:51] LABS: Ketone (Acetest) Serum Positive (Negative)
[2025-02-28] MEDS: sodium chloride 0.9% 1,000 ML 999 ML IV ×2 (10:51→11:15)
[2025-02-28 11:11] LABS: ABG PCO2 31.2 mmHg (35-45); ABG PH Result 7.23 (7.35-7.45); Alveolar-Arterial Oxygen Gradi 2.1 mmHg (5-10); Arterial Blood Gas Hematocrit 47.8 % (42-52); Base Excess ABG -13.3 mmol/L (-2.0-2.0); Blood Gas Allen Test Pos; Blood Gas Operator Identificat WALCI; Blood Gas Sample Site Radial, right; Blood Gas Sample Type Arterial; Carboxyhemoglobin 1.4 %THgb (0.4-20.1); HCO3 ABG 12.9 mmol/L (22-26); HGB O2 Sat 94.3 % (95-100); Ionized Calcium Level - ABG 1.5 mmol/L (1.1-1.4); Methemoglobin 1.1 % (0.4-1.5); Oxygen Device ROOM AIR; Oxygen Saturation ABG 96.7; PO2 ABG 93.3 mmHg (80.0-100.0); PO2 FiO2 Ratio Arterial Blood 444; Potassium Level - ABG 5.2 mmol/L (3.5-5.0); Total Hemoglobin 15.6 g/dL (14-18)
[2025-02-28] MEDS: insulin regular-human 100 units/1 mL 10 UNIT IVP (11:27)
[2025-02-28 11:29] LABS: Glucose Point of Care 443 mg/dL (70-110)
--- NOTE | 2025-02-28 11:52 | ECG_ITS ---
Lettuce Test Date: 2025-02-28 Pat Name: Harvey Li (Mark) Department: Room: Gender: Male Ear Flap Binder: : 1960 Requested By: Buster Hernández Order Number: [id number] Reading MD: DINO ANTONIO Measurements Intervals [place] Rate: 115 P: 0 NV: 0 QRS: 3 QRSD: 116 T: 253 QT: 303 QTc: 419 Interpretive Statements ATRIAL FIBRILLATION WITH RAPID VENTRICULAR RESPONSE MODERATE INTRAVENTRICULAR CONDUCTION DELAY [110+ ms QRS DURATION] MODERATE T-WAVE ABNORMALITY, CONSIDER ANTEROLATERAL ISCHEMIA [-0.1+ mV T-WAVE IN V3-V6] Compared to ECG 02/28/2025 09:14:45 Intraventricular conduction delay now present Possible ischemia now present T-wave abnormality still present Electronically Signed On 03-05-2025 22:59:18 CDT by DINO ANTONIO [email or web address]
[2025-02-28] MEDS: INSULIN REGULAR IN 0.9 % NACL 100 UNIT/100 ML BAG IV (12:14)
--- NOTE | 2025-02-28 12:16 | PC.NURSE ---
glucose 371; started insulin gtt @4 units/4mLs/hr per Dr. Ambriz
[2025-02-28 12:18] LABS: Troponin 5 2HR 27.72 ng/L (0-15)
[2025-02-28 12:19] LABS: Troponin 5 2HR Delta -4.28 ABS# (0-10)
[2025-02-28 12:19] LABS: Glucose Point of Care 371 mg/dL (70-110)
[2025-02-28 12:37] LABS: Glucose Point of Care 373 mg/dL (70-110)
[2025-02-28 13:04] LABS: Glucose Point of Care 349 mg/dL (70-110)
--- NOTE | 2025-02-28 13:14 | PC.NURSE ---
per Dr. Ambriz to discuss insulin infusion gtt rate with hospitalist. glucose @1300 : 349
--- NOTE | 2025-02-28 13:58 | PM.HP ---
Providers/Chief Complaint Admitting Physician: Ben Marie Primary Care Provider: William Black MD Chief Complaint: fall/lost consciousness History of Present Illness Harvey Li (Mark) is a 64 year old male with a history of atrial fibrillation, congestive heart failure, hypertension, obstructive sleep apnea, diabetes, and prior partial cystectomy (for kidney cancer), presenting after a syncopal episode yesterday afternoon following a fishing trip. The patient lost consciousness in a restroom and awoke on the floor. He did not seek care immediately but presented to the ER the following morning after being encouraged by a site physician. On arrival, he was found to be tachycardic with atrial fibrillation and metabolic acidosis. He reports recent missed doses of Ozempic due to feeling unwell after Keytruda infusions, and has only taken it once in the past several weeks. He is also on metformin and Eliquis. The patient has had two Keytruda infusions as part of a one-year regimen for kidney cancer, with no evidence of residual disease on recent PET scan and biopsies. He reports recent nausea (severe, with poor oral intake for 3-4 days), intermittent diarrhea (increasing in frequency after Keytruda), and occasional dark stools but denies overt blood in stool or urine. No recent fever, chills, cough, or hypoglycemic episodes. He has mild acute kidney injury (creatinine 1.3) and is producing urine but has not urinated much since admission. No recent use of NSAIDs. He denies swelling in the legs, and there is no mention of chest pain or shortness of breath. The patient is concerned about the function of his remaining kidney and is interested in communication with his oncologist and urologist at [place]. He is currently receiving IV fluids and is started on insulin drip for DKA. Review of Systems Const: Reports: fatigue and malaise; Denies: fever(s) or chills ENMT: Denies: throat pain Card: Denies: chest pain, edema, pre-syncope or dyspnea on exertion Resp: Denies: dyspnea, productive cough, change in phlegm color or hemoptysis GI: Reports: nausea; Denies: abdominal pain, vomiting, diarrhea, constipation, hematochezia or melena : Reports: oliguria; Denies: flank pain, difficulty urinating, urinary frequency or hematuria Musc: Denies: back pain, joint swelling or joint redness Skin/Breast: Denies: rash or new lesions Neuro: Denies: headache(s) or confusion Medications/Allergies Home Medications ?Medication ?Instructions ?Recorded ?Confirmed ?Last Taken ?Type omega-3 fatty acids 1,000 mg 1,000 mg PO .qod 05/03/22 02/28/25 02/27/25 History capsule Diabetic Shoes with 3 Custom #1 ea 12/22/23 02/28/25 Unknown Rx Inserts metoprolol succinate 100 mg 100 mg PO DAILY 09/20/24 02/28/25 02/27/25 History tablet,extended release 24 hr furosemide 40 mg tablet See Rx Instructions .Route 12/31/24 02/28/25 02/27/25 Rx .COMPLEX #120 tabs acetaminophen 325 mg capsule 325 mg PO QID PRN Pain 01/16/25 02/28/25 Unknown History antiarthritic combination no.2 900 900 mg PO .everyotherday 01/16/25 02/28/25 02/27/25 History mg tablet (glucosamine-chondroitin) apixaban 5 mg tablet (Eliquis) 5 mg PO DAILY 01/16/25 02/28/25 02/27/25 History prochlorperazine maleate 10 mg 10 mg PO Q4H PRN mild nausea #30 01/16/25 02/28/25 02/27/25 Rx tablet (Compazine) tabs semaglutide 0.25 mg or 0.5 mg (2 0.25 mg SUBCUT Q7D 01/16/25 02/28/25 Unknown History mg/3 mL) subcutaneous pen injector (Ozempic) tamsulosin 0.4 mg capsule (Flomax) 0.4 mg PO BID 01/16/25 02/28/25 02/27/25 History atorvastatin 20 mg tablet 20 mg PO DAILY 02/28/25 02/28/25 02/27/25 History metformin 1,000 mg tablet 1,000 mg PO BID 02/28/25 02/28/25 02/27/25 History potassium chloride 20 mEq See Rx Instructions .Route .COMPLEX 02/28/25 02/28/25 02/27/25 History tablet,extended release(part/cryst) Allergies Allergy/AdvReac Type Severity Reaction Status Date / Time shellfish derived Allergy Intermediate ADR-Vomitin Verified 02/18/25 12:39 g PFSH Acute PFSH: Medical History Palpitations KELLEE (obstructive sleep apnea) Dyspnea on exertion Peripheral edema Chest tightness Chest pain CHF (congestive heart failure) Atrial fibrillation HTN (hypertension) Surgical History H/O partial cystectomy Family History Father Congenital heart disease Cancer Lung disease Grandfather Cancer Grandmother Cancer Denies family history of Diabetes CAD (coronary artery disease) Clotting disorder Dementia Chronic kidney disease (CKD) Suicide Anesthesia complication Bleeding disorder Stroke Social History Smoking and tobacco/nicotine status: former use of tobacco/nicotine Alcohol intake: current Alcohol intake frequency: few times a month Substance/Drug Use: never Vitals/I&O/Wt Last Vital Signs Temp 97.9 F 02/28/25 09:08 Pulse 110 H 02/28/25 13:23 Resp 18 02/28/25 12:38 BP 133/80 02/28/25 13:23 Pulse Ox 98 02/28/25 13:23 O2 Del Method Room Air 02/28/25 10:51 02/27/25 02/28/25 02/28/25 22:59 06:59 14:59 Intake Total 1999 Balance 1999 Weight last 48 hrs Weight 169.19 kg Weight 179.169 kg Physical Exam Narrative: Accompanied by his Const: COMMON NORMALS: patient oriented x3 and alert GENERAL APPEARANCE: cooperative ORIENTATION/CONSCIOUSNESS: Yes awake HENMT: COMMON NORMALS: oropharynx normal Neck/C-Spine: COMMON NORMALS: no JVD Resp: COMMON NORMALS: normal respiratory effort and clear to auscultation bilaterally AUSCULTATION: clear to auscultation bilaterally Cardio: COMMON NORMALS: no JVD, regular rhythm, S1 normal heart sound present, S2 normal heart sound present and No murmurs present (Cardio) RHYTHM: regular rhythm HEART SOUNDS: S1 normal heart sound present and S2 normal heart sound present GI: COMMON NORMALS: Normal to inspection, nondistended, normoactive bowel sounds present, Soft to palpation and non-tender PALPATION: Yes Soft to palpation OTHER: Mid abdominal scar post nephrectomy. Extremity: COMMON NORMALS: no joint enlargement and no pedal edema Neuro: COMMON NORMALS: patient oriented x3 and moves all extremities SENSORIUM/ORIENTATION: Yes alert Skin: COMMON NORMALS: no rashes or lesions noted GENERAL SKIN EXAM: no rashes or lesions noted Data 02/28/25 09:13 02/28/25 15:12 A&P Assessment and plan (1) DKA (diabetic ketoacidosis): Patient presented with DKA, evidenced by metabolic acidosis (ABG 7.23, bicarb 13), hyperglycemia (glucose 428), positive serum and urine ketones, and missed doses of diabetes medications. Nausea and poor oral intake contributed to dehydration. - Continue IV fluids for rehydration. Switch to dextrose containing fluid when glucose reaches below 250. - insulin drip, titrate as per protocol. Requested repeat chemistry, electrolyte repletion as needed. - Monitor blood glucose and transition to subcutaneous insulin as appropriate. - Monitor for resolution of acidosis and ketonemia. -He would like to start some clear liquids, requested. -Zofran as needed for nausea. -PPI prophylaxis. On Eliquis for atrial fibrillation, should suffice for VTE prophylaxis. - Monitor for recurrence of symptoms. - Will also check A1c, with BARBARA, may not be the best candidate to continue Ozempic. Depending on A1c and renal function consider institution of insulin or switch to alternative medication. (2) Atrial fibrillation with RVR: Atrial fibrillation : History of atrial fibrillation, tachycardic on presentation. On metoprolol and Eliquis at home. Received IV and oral metoprolol in ER. Continue p.o. metoprolol. Check magnesium. Follow-up chemistry. Anticipate should improve with treatment of DKA. Continue to monitor in telemetry. - Continue rate control with metoprolol - Continue anticoagulation with Eliquis unless contraindicated. - Monitor cardiac rhythm and rate. (3) BARBARA (acute kidney injury): Acute kidney injury (on single kidney) : Mild acute kidney injury (creatinine 1.3) in the context of DKA and dehydration, with history of partial cystectomy (one remaining kidney). No recent NSAID use. Urine output to be closely monitored. - Monitor urine output (consider catheter placement for accurate measurement). - Serial monitoring of creatinine and electrolytes. - Continue IV fluids to optimize renal perfusion. - Avoid nephrotoxic agents. Hold Ozempic. Consider discontinuation at discharge depending on recovery of renal function. Will check A1c. - Consult with urology and oncology as needed. (4) Syncope: Complete treatment of A-fib with RVR, DKA. Continue hydration for dehydration. May benefit from echocardiogram once tachycardia improves. Similarly once he is doing better with assess orthostatics. Reviewed EKG, troponin, complete EKG and troponin series. Monitor on telemetry. (5) Diarrhea: Has been having diarrhea for weeks to months now. With some worsening recently. Possibly secondary to Keytruda. Check C. difficile. He is on metformin as well, which may be contributing. Checking A1c, and will follow-up renal function, depending on results consider switching to insulin. Plan CHF: History of HFpEF. Not in exacerbation. Monitor for fluid overload. Renal cell cancer: Status post nephrectomy. On Keytruda. Has been getting infusions locally and following up with Dr. Harkins after initial care in [place] where he still follows with Dr. Russo and certified medical technician assistant Diogo ([phone]). Spoke with Diogo to update the team about patient's illness and admission. HTN: Monitor blood pressures. KELLEE: Not using CPAP. DM2: Has been on metformin, Ozempic, has missed doses of Ozempic due to Keytruda infusions. Has been having diarrhea PDMP PDMP Reviewed: Not Reviewed Attestations Medical Necessity Statement*: Admission 40 minutes anticipated for assessment management of DKA, A-fib with RVR, additional assessment following syncopal episode, BARBARA in a gentleman status post nephrectomy with renal cell carcinoma undergoing treatment with Keytruda. Coding Level of Care Code Critical Care >/= 30 minutes Critical care time (in minutes): 40 The high probability of a clinically significant, sudden or life threatening deterioration, as referenced in this documentation, required my full and direct attention, intervention and personal management. The critical care time shown is in addition to time spent performing any reported separately billable procedures and includes the following: [x] Data and vital sign review and interpretation [x] Patient assessment, examination and intervention [x] Medication orders and management [x] Patient/Family updates as able [x] Care Coordination and Documentation. Diagnoses DKA (diabetic ketoacidosis) E11.10 Atrial fibrillation with RVR I48.91 BARBARA (acute kidney injury) N17.9 Syncope R55 Diarrhea R19.7
[2025-02-28 14:25] LABS: Glucose Point of Care 355 mg/dL (70-110)
--- NOTE | 2025-02-28 15:14 | ECG_ITS ---
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: : 1960 Requested By: Buster Hernández Order Number: [id number] Reading MD: DINO ANTONIO Measurements Intervals [place] Rate: 108 P: 0 NC: 0 QRS: -8 QRSD: 109 T: 240 QT: 256 QTc: 344 Interpretive Statements ATRIAL FIBRILLATION WITH RAPID VENTRICULAR RESPONSE INFERIOR MYOCARDIAL INFARCTION , OF INDETERMINATE AGE [40+ ms Q WAVE AND/OR ST/T ABNORMALITY IN II/aVF] MODERATE T-WAVE ABNORMALITY, CONSIDER ANTEROLATERAL ISCHEMIA [-0.1+ mV T-WAVE IN V3-V6] Compared to ECG 02/28/2025 11:52:20 Myocardial infarct finding now present Intraventricular conduction delay no longer present T-wave abnormality still present Possible ischemia still present Electronically Signed On 03-05-2025 22:59:45 CDT by DINO ANTONIO [email or web address]
[2025-02-28 15:26] LABS: Glucose Point of Care 292 mg/dL (70-110)
[2025-02-28] MEDS: pantoprazole 40 mg SDV IVP (15:26)
[2025-02-28] MEDS: apixaban 5 mg Tablet PO (15:26)
[2025-02-28] MEDS: sodium chloride 0.9% 1,000 ML 150 ML IV (15:30)
[2025-02-28 15:47] LABS: Troponin 5 6HR 27.12 ng/L (0-15)
[2025-02-28 15:49] LABS: Troponin 5 6HR Delta -4.88 ng/L (0-12)
[2025-02-28 16:18] LABS: Glucose Point of Care 263 mg/dL (70-110)
[2025-02-28 16:37] LABS: Anion Gap 23.3 (5-19); Blood Urea Nitrogen 36 mg/dL (8-23); Calcium 10.8 mg/dL (8.5-10.5); Carbon Dioxide 15 mmol/L (22-29); Chloride 98 mmol/L (98-107); Creatinine Clr Calc Pharmacy 114.9944; Glomerular Filtration Rate 67.6 mL/min (90-130); Glucose 303 mg/dL (65-115); Osmolality Calculated 294 mOsm/kg (285-295); Potassium 4.3 mmol/L (3.5-5.1); Sodium 132 mmol/L (136-145)
[2025-02-28 16:46] LABS: Magnesium 1.9 mg/dL (1.7-2.3); Phosphorus 3.5 mg/dL (2.5-4.5)
[2025-02-28] MEDS: dextrose 5%-sod chloride 0.45% 1,000 ML 200 ML IV ×2 (17:24→23:14)
[2025-02-28] MEDS: tamsulosin 0.4 mg Capsule PO (17:24)
[2025-02-28] MEDS: acetaminophen 325 mg Tablet 650 MG PO (17:31)
[2025-02-28] MEDS: ondansetron 2 mg/ML SDV 2 mL 4 MG IVP (17:32)
[2025-02-28 18:14] LABS: Glucose Point of Care 198 mg/dL (70-110)
[2025-02-28 18:43] LABS: Glucose Point of Care 210 mg/dL (70-110)
[2025-02-28 19:59] LABS: Phosphorus 3.5 mg/dL (2.5-4.5)
[2025-02-28 20:09] LABS: Anion Gap 17.5 (5-19); Blood Urea Nitrogen 35 mg/dL (8-23); Carbon Dioxide 23 mmol/L (22-29); Chloride 104 mmol/L (98-107); Creatinine Clr Calc Pharmacy 84.3293; Glomerular Filtration Rate 47.3 mL/min (90-130); Glucose 174 mg/dL (65-115); Osmolality Calculated 304 mOsm/kg (285-295); Potassium 3.5 mmol/L (3.5-5.1); Sodium 141 mmol/L (136-145); Thyroid Stimulating Hormone 3.18 uIU/mL (0.27-4.20)
[2025-02-28 20:21] LABS: Glucose Point of Care 271 mg/dL (70-110)
[2025-02-28 21:40] LABS: Glucose Point of Care 291 mg/dL (70-110)
[2025-02-28 23:15] LABS: Glucose Point of Care 274 mg/dL (70-110)
[2025-03-01] VITALS (60 sets, daily range): BP systolic 101–172; BP diastolic 60–134; PULSE 88–130; TEMP 36.6; O2SAT 85–95
[2025-03-01 00:25] LABS: Glucose Point of Care 289 mg/dL (70-110)
[2025-03-01 01:50] LABS: Glucose Point of Care 254 mg/dL (70-110)
[2025-03-01 03:11] LABS: Estmated Average Glucose 111; Hemoglobin A1C 5.5 % (4.0-6.0)
[2025-03-01 03:13] LABS: Glucose Point of Care 230 mg/dL (70-110)
[2025-03-01 04:20] LABS: Basophils % 0.4 %; Eosinophils # 0.1 10^3/uL (0.0-0.8); Eosinophils % 1.1 %; Hematocrit 41.5 % (37-53); Lymphocytes # 1.4 10^3/uL (0.8-4.8); Lymphocytes % 14.4 %; Mean Corpuscular HGB Conc 32.3 g/dL (30-55); Mean Corpuscular Hemoglobin 28.9 pg (27-33); Mean Corpuscular Volume 89.4 fl (82-101); Mean Platelet Volume 10.8 fL (7.4-10.4); Monocytes # 1.4 10^3/uL (0.2-0.9); Neutrophils # 6.68 10^3/uL (1.8-7.7); Neutrophils % 69.1 %; Nucleated Red Blood Cells % 0 %; Platelet Count 209 10^3/cmm (157-399); Red Blood Count 4.64 10^6/uL (3.85-5.65); Red Cell Distribution Width 13.4 % (12.1-15.1); White Blood Count 9.67 10^3/uL (3.29-11.43)
[2025-03-01] MEDS: dextrose 5%-sod chloride 0.45% 1,000 ML 200 ML IV (04:42)
[2025-03-01 04:46] LABS: Alanine Aminotransferase 29 U/L (0-41); Alkaline Phosphatase 90 U/L (40-130); Anion Gap 14.1 (5-19); Aspartate Amino Transferase 28 U/L (0-40); Blood Urea Nitrogen 28 mg/dL (8-23); Calcium 10.4 mg/dL (8.5-10.5); Carbon Dioxide 20 mmol/L (22-29); Chloride 101 mmol/L (98-107); Creatinine Clr Calc Pharmacy 140.5488; Globulin 3.3 g/dL (1.3-4.6); Glomerular Filtration Rate 85.2 mL/min (90-130); Glucose 236 mg/dL (65-115); Magnesium 1.7 mg/dL (1.7-2.3); Osmolality Calculated 285 mOsm/kg (285-295); Phosphorus 2.5 mg/dL (2.5-4.5); Potassium 4.1 mmol/L (3.5-5.1); Sodium 131 mmol/L (136-145); Total Bilirubin 0.5 mg/dL (0.15-1.2); Total Protein 6.3 g/dL (6.6-8.7)
[2025-03-01 04:49] LABS: Glucose Point of Care 254 mg/dL (70-110)
[2025-03-01] MEDS: INSULIN REGULAR IN 0.9 % NACL 100 UNIT/100 ML BAG 5.5 UNIT IV (05:52)
[2025-03-01 06:03] LABS: Glucose Point of Care 294 mg/dL (70-110)
[2025-03-01 07:15] LABS: Glucose Point of Care 317 mg/dL (70-110)
[2025-03-01] MEDS: ondansetron 2 mg/ML SDV 2 mL 4 MG IVP (07:43)
[2025-03-01] MEDS: acetaminophen 325 mg Tablet 650 MG PO (07:50)
[2025-03-01 08:30] LABS: Glucose Point of Care 320 mg/dL (70-110)
[2025-03-01] MEDS: sodium chloride 0.9% 1,000 ML 100 ML IV (08:39)
[2025-03-01] MEDS: metoprolol succinate ER (24 HR) 100 mg Tablet PO (09:23)
[2025-03-01] MEDS: apixaban 5 mg Tablet PO (09:23)
[2025-03-01] MEDS: tamsulosin 0.4 mg Capsule PO ×2 (09:23→17:37)
[2025-03-01 09:34] LABS: Anion Gap 15.1 (5-19); Blood Urea Nitrogen 28 mg/dL (8-23); Calcium 10.4 mg/dL (8.5-10.5); Carbon Dioxide 18 mmol/L (22-29); Chloride 98 mmol/L (98-107); Glomerular Filtration Rate 97.6 mL/min (90-130); Glucose 345 mg/dL (65-115); Magnesium 1.7 mg/dL (1.7-2.3); Osmolality Calculated 283 mOsm/kg (285-295); Phosphorus 2.5 mg/dL (2.5-4.5); Potassium 4.1 mmol/L (3.5-5.1); Sodium 127 mmol/L (136-145)
[2025-03-01 10:46] LABS: Glucose Point of Care 348 mg/dL (70-110)
[2025-03-01 10:46] LABS: Glucose Point of Care 278 mg/dL (70-110)
[2025-03-01 11:05] LABS: Glucose Point of Care 239 mg/dL (70-110)
[2025-03-01] MEDS: dextrose 5%-sod chloride 0.45% 1,000 ML 150 ML IV (11:06)
[2025-03-01 12:11] LABS: Anion Gap 10.7 (5-19); Blood Urea Nitrogen 26 mg/dL (8-23); Calcium 10.2 mg/dL (8.5-10.5); Carbon Dioxide 22 mmol/L (22-29); Chloride 101 mmol/L (98-107); Creatinine Clr Calc Pharmacy 140.3111; Glomerular Filtration Rate 85.2 mL/min (90-130); Glucose 197 mg/dL (65-115); Osmolality Calculated 280 mOsm/kg (285-295); Potassium 3.7 mmol/L (3.5-5.1); Sodium 130 mmol/L (136-145)
[2025-03-01 12:35] LABS: Glucose Point of Care 169 mg/dL (70-110)
[2025-03-01] MEDS: insulin glargine 100 units/1 mL 10 UNIT SUBCUT (13:02)
[2025-03-01 13:07] LABS: Glucose Point of Care 100 mg/dL (70-110)
[2025-03-01 14:02] LABS: Glucose Point of Care 143 mg/dL (70-110)
[2025-03-01] MEDS: pantoprazole 40 mg SDV IVP (14:31)
[2025-03-01] MEDS: nicotine 4 mg lozenge MUCOUS MEM (14:31)
[2025-03-01] MEDS: dilTIAZem 30 mg Tablet PO (14:50)
[2025-03-01 15:43] LABS: Glucose Point of Care 198 mg/dL (70-110)
--- NOTE | 2025-03-01 16:42 | P.PN_ITS ---
Subjective 2 Subjective: - Patient was seen this morning - He is alert oriented x 3, following al l commands, sitting up in a chair - Currently heart rate rates in the 120s atrial fibrillation, has received his metoprolol - He is anion gap is 14 to 15, blood sug ars are creeping up into the 300s remains on insulin drip - Discussed with nursing staff stop D5, switch to normal saline - Will await repeat BMP, repeat BMP show s anion gap increased to 15, blood sugar still in the 300s, keep n.p.o., continue insulin drip, wait for next BMP, continue monitoring blood sugars, will wait for repeat BMP at noon - Discussed with patient and - Patient and want patient to be re ferred for sleep study - His A1c is 5.5, they think that his hy perglycemia is likely a side effect of the Keytruda that he is on, he has been on Ozempic - Recheck anion gap 10.7, blood sugars a re reasonable in the 190s, insulin drip was stopped, transition to subcu insulin with Lantus, overlapping Lantus and insulin drip for an hour - At about 4:30 PM, spoke to nursing sta ff heart rates in the 120s A-fib with RVR, I had given him Cardizem 30 mg earlier at about 2 PM without any significant effect will switch him to an amiodarone drip with amiodarone bolus Vitals/I&O/Wt Last Vital Signs Temp 97.9 F 03/01/25 13:25 Pulse 103 H 03/01/25 16:00 Resp 18 02/28/25 16:45 BP 138/81 03/01/25 16:00 Pulse Ox 89 L 03/01/25 16:00 O2 Del Method Room Air 03/01/25 16:00 03/01/25 03/01/25 03/01/25 06:59 14:59 22:59 Intake Total 1282.541 / 5569.749 2198.157 / 2198.157 Output Total 1650 / 1650 Balance -367.459 / 3919.749 2198.157 / 2198.157 Weight last 48 hrs Weight 165 kg Weight 165 kg Weight 165.5 kg Weight 169.19 kg Weight 179.169 kg Physical Exam 2 Const: COMMON NORMALS: no acute distress and patient oriented x3 Resp: COMMON NORMALS: normal respiratory effort, No retractions, No use of accessory muscles and clear to auscultation bilaterally AUSCULTATION: clear to auscultation bilaterally Cardio: COMMON NORMALS: regular rate, regular rhythm, S1 normal heart sound present and S2 normal heart sound present RATE: regular rate RHYTHM: r egular rhythm HEART SOUNDS: S1 normal heart sound present and S2 normal heart sound present GI: COMMON NORMALS: Normal to inspection, nondistended, normoactive bowel sounds present and non-tender Extremity: COMMON NORMALS: no pedal edema NARRATIVE EXTREMITY EXAM: On examination, no significant calf pain, no calf swelling, no tenderness Neuro: COMMON NORMALS: patient oriented x3 Psych: COMMON NORMALS: mental status grossly normal Urinary Catheter Management: Sandoval: Cath Placed During This Visit: yes Reason for Continuing Indwelling Catheter: Accurate Measurement of Urinary Output in Critically Ill Patients Urinary Catheter Date of Insertion: 02/28/25 Urinary Catheter Time of Insertion: 15:23 Data 03/01/25 03:54 03/01/25 11:40 A&P Assessment and plan (1) DKA (diabetic ketoacidosis): - DKA protocol - Insulin drip - Monitor blood sugars hourly (2) Atrial fibrillation with RVR: - Continue home Eliquis - Continue home metoprolol -continue amiodarone drip (3) BARBARA (acute kidney injury): - Creatinine 0.9 (4) Syncope: - Likely component of dehydration, A-fib with RVR, DKA - Cardiac echo, carotid artery ultrasound ordered (5) Diarrhea: - C. difficile pending Plan CHF: History of HFpEF. Does have 1+ pitting edema will hold off on Lasix for today given DKA as above Renal cell cancer: Status post nephrectomy. On Keytruda. Has been getting infusions locally and following up with Dr. Harkins after initial care in [place] where he still follows with Dr. Russo and program services assistant Diogo ([phone]). Spoke with Diogo to update the team about patient's illness and admission. HTN: Monitor blood pressures. KELLEE: Not using CPAP. DM2: Has been on metformin, Ozempic, has missed doses of Ozempic due to Keytruda infusions. Has been having diarrhea PDMP PDMP Reviewed: Not Reviewed Attestations 2 Medical Necessity Statement*: Patient requires hospitalization for diabetic ketoacidosis, A-fib with RVR, BARBARA Diagnoses DKA (diabetic ketoacidosis) E11.10 Atrial fibrillation with RVR I48.91 BARBARA (acute kidney injury) N17.9 Syncope R55 Diarrhea R19.7
[2025-03-01] MEDS: amiodarone 150 MG/100 ML PREMIX 400 MG IV (16:56)
[2025-03-01 17:31] LABS: Glucose Point of Care 233 mg/dL (70-110)
[2025-03-01] MEDS: insulin lispro 100 unit/1 mL SUBCUT (17:37)
--- NOTE | 2025-03-01 19:07 | PC.NURSE ---
Shift note: Patient up to chair for a time, ambulates well with stand by assistance. Off insulin drip at 1400. A-fib into 120's and 130's. Amio drip running. Multiple IV attempts, one by ultrasound, patient unintentionally pulled two IVs, and declines IV start at this time. Remaining IV in left AC functioning well.
[2025-03-02] VITALS (85 sets, daily range): BP systolic 103–151; BP diastolic 68–108; PULSE 70–124; RESP 6–26; TEMP 36.4–37.2; O2SAT 80–98
[2025-03-02 04:55] LABS: Basophils % 0.6 %; Eosinophils # 0.1 10^3/uL (0.0-0.8); Eosinophils % 1.5 %; Lymphocytes # 1.4 10^3/uL (0.8-4.8); Lymphocytes % 20.2 %; Mean Corpuscular HGB Conc 31.9 g/dL (30-55); Mean Corpuscular Hemoglobin 28.7 pg (27-33); Mean Corpuscular Volume 89.9 fl (82-101); Mean Platelet Volume 11.3 fL (7.4-10.4); Neutrophils # 4.13 10^3/uL (1.8-7.7); Neutrophils % 61.2 %; Nucleated Red Blood Cells % 0 %; Platelet Count 195 10^3/cmm (157-399); Red Blood Count 4.67 10^6/uL (3.85-5.65); Red Cell Distribution Width 13.6 % (12.1-15.1); White Blood Count 6.74 10^3/uL (3.29-11.43)
[2025-03-02 05:16] LABS: Blood Urea Nitrogen 25 mg/dL (8-23); Calcium 10.4 mg/dL (8.5-10.5); Carbon Dioxide 17 mmol/L (22-29); Creatinine Clr Calc Pharmacy 140.3111; Glomerular Filtration Rate 85.2 mL/min (90-130); Glucose 397 mg/dL (65-115)
[2025-03-02 05:53] LABS: Anion Gap 19.9 (5-19); Chloride 99 mmol/L (98-107); Osmolality Calculated 293 mOsm/kg (285-295); Potassium 4.9 mmol/L (3.5-5.1); Sodium 131 mmol/L (136-145)
[2025-03-02 07:26] LABS: Glucose Point of Care 376 mg/dL (70-110)
[2025-03-02] MEDS: metoprolol succinate ER (24 HR) 100 mg Tablet PO (08:37)
[2025-03-02] MEDS: insulin lispro 100 unit/1 mL SUBCUT ×3 (08:37→17:36)
[2025-03-02] MEDS: apixaban 5 mg Tablet PO ×2 (08:37→20:20)
[2025-03-02] MEDS: tamsulosin 0.4 mg Capsule PO ×2 (08:37→17:36)
[2025-03-02] MEDS: insulin glargine 100 units/1 mL 15 UNIT SUBCUT (08:46)
[2025-03-02 11:13] LABS: Glucose Point of Care 369 mg/dL (70-110)
[2025-03-02 11:38] LABS: Glucose Point of Care 359 mg/dL (70-110)
[2025-03-02] MEDS: ondansetron 2 mg/ML SDV 2 mL 4 MG IVP (11:55)
[2025-03-02 11:59] LABS: Anion Gap 15.5 (5-19); Blood Urea Nitrogen 23 mg/dL (8-23); Calcium 10.2 mg/dL (8.5-10.5); Carbon Dioxide 18 mmol/L (22-29); Chloride 101 mmol/L (98-107); Glomerular Filtration Rate 85.2 mL/min (90-130); Glucose 373 mg/dL (65-115); Osmolality Calculated 289 mOsm/kg (285-295); Potassium 4.5 mmol/L (3.5-5.1); Sodium 130 mmol/L (136-145)
--- NOTE | 2025-03-02 13:19 | P.PN_ITS ---
Vitals/I&O/Wt Last Vital Signs Temp 98.9 F 03/02/25 07:15 Pulse 88 03/02/25 12:30 Resp 26 H 03/02/25 12:30 BP 138/78 03/02/25 12:30 Pulse Ox 95 03/02/25 12:30 O2 Del Method Room Air 03/02/25 12:30 FiO2 21 03/02/25 02:49 03/01/25 03/02/25 03/02/25 22:59 06:59 14:59 Intake Total 580 / 2778.157 440.00 / 3218.157 400 / 400 Output Total 2200 / 2200 2200 / 4400 1450 / 1450 Balance -1620 / 578.157 -1760.00 / -1181.843 -1050 / -1050 Weight last 48 hrs Weight 168 kg Weight 168 kg Weight 165 kg Weight 165 kg Weight 165.5 kg Physical Exam 2 Const: COMMON NORMALS: no acute distress and patient oriented x3 Resp: COMMON NORMALS: normal respiratory effort, No retractions, No use of accessory muscles and clear to auscultation bilaterally AUSCULTATION: clear to auscultation bilaterally Cardio: COMMON NORMALS: regular rate, regular rhythm, S1 normal heart sound present and S2 normal heart sound present RATE: regular rate RHYTHM: r egular rhythm HEART SOUNDS: S1 normal heart sound present and S2 normal heart sound present GI: COMMON NORMALS: Normal to inspection, nondistended, normoactive bowel sounds present and non-tender Extremity: COMMON NORMALS: no pedal edema Neuro: COMMON NORMALS: patient oriented x3 Psych: COMMON NORMALS: mental status grossly normal Urinary Catheter Management: Sandoval: Cath Placed During This Visit: yes Reason for Continuing Indwelling Catheter: Accurate Measurement of Urinary Output in Critically Ill Patients Urinary Catheter Date of Insertion: 02/28/25 Urinary Catheter Time of Insertion: 15:23 Data 03/02/25 04:12 03/02/25 11:36 A&P Assessment and plan (1) DKA (diabetic ketoacidosis): - Likely side effect of Keytruda - DKA protocol, anion gap has closed -However blood sugars remain elevated -Highly suspicious patient has developed type 1 diabetes, Keytruda adverse reaction - Insulin drip is off -Blood sugars remain elevated in the high 300s, anion gap is slowly creeping back up, developing metabolic acidosis -Continue high-dose sliding scale -Lantus 15 units this morning -Recheck BMP at 12 PM, anion gap down to 15.5, bicarb is 18 -Will give a liter bolus -Recheck blood sugar after meal, received 16 units -Will consider giving additional insulin -Recheck BMP at 5 PM - Monitor blood sugars closely (2) Atrial fibrillation with RVR: - Switch to Eliquis 5 mg twice daily - Continue home metoprolol - Stop amiodarone drip switch to p.o. amiodarone 400 mg p.o. twice daily (3) BARBARA (acute kidney injury): - Creatinine 0.9 (4) Syncope: - Likely component of dehydration, A-fib with RVR, DKA - Cardiac echo, carotid artery ultrasound ordered (5) Diarrhea: - C. difficile pending Plan CHF: History of HFpEF. Does have 1+ pitting edema will hold off on Lasix for today given DKA as above Renal cell cancer: Status post nephrectomy. On Keytruda. Has been getting infusions locally and following up with Dr. Harkins after initial care in [place] where he still follows with Dr. Russo and application assistant Diogo ([phone]). Spoke with Diogo to update the team about patient's illness and admission. HTN: Monitor blood pressures. KELLEE: Not using CPAP. DM2: Has been on metformin, Ozempic, has missed doses of Ozempic due to Keytruda infusions. Has been having diarrhea PDMP PDMP Reviewed: Not Reviewed Attestations 2 Medical Necessity Statement*: Patient requires hospitalization for persistent hyperglycemia likely Keytruda side effect Diagnoses DKA (diabetic ketoacidosis) E11.10 Atrial fibrillation with RVR I48.91 BARBARA (acute kidney injury) N17.9 Syncope R55 Diarrhea R19.7
--- NOTE | 2025-03-02 13:34 | PC.NURSE ---
Verbal order from Dr. Mensah to give 10 units humalog now. BG 327.
[2025-03-02] MEDS: pantoprazole 40 mg SDV IVP (13:53)
[2025-03-02] MEDS: insulin lispro 100 unit/1 mL 10 UNIT SUBCUT (13:53)
[2025-03-02] MEDS: lactated ringers 500 ML 999 ML IV (13:53)
--- NOTE | 2025-03-02 15:07 | PC.NURSE ---
Patient ambulated unit, stand by assist. Sandoval removed, no complications, patient up to chair and reports feeling well. BG at 1500 326, one hour after [address] Mensah notified.
[2025-03-02 15:13] LABS: Glucose Point of Care 326 mg/dL (70-110)
[2025-03-02 15:13] LABS: Glucose Point of Care 327 mg/dL (70-110)
[2025-03-02 16:25] LABS: Glucose Point of Care 340 mg/dL (70-110)
--- NOTE | 2025-03-02 16:57 | USR_ITS ---
PROCEDURE INFORMATION: Exam: US Duplex Bilateral Extracranial Arteries; Complete; Carotid Arteries Exam date and time: 03/02/2025 9:44 AM Age: 64 years old Clinical indication: Syncope and collapse TECHNIQUE: Imaging protocol: Real-time duplex ultrasound scan of the bilateral extracranial arteries combining mcgarry scale, color Doppler and spectral waveform analysis with image documentation. Complete exam. Exam focused on the carotid arteries. COMPARISON: CT cervical spin wo con* [id number] 02/28/2025 9:48 AM FINDINGS: Right common carotid artery: Unremarkable. No occlusion or stenosis. Waveforms are normal. Peak systolic velocity 130.7-183.2 cm/sec. Right internal carotid artery: Unremarkable. No occlusion or stenosis. Waveforms are normal. Peak systolic velocity 75.6-128.9 cm/sec. Right ICA/CCA ratio: 1.1, within normal limits. Right external carotid artery: No stenosis in the origin. Right vertebral artery: Unremarkable. Antegrade flow. Left common carotid artery: Unremarkable. No occlusion or stenosis. Waveforms are normal. Peak systolic velocity 168.5-201.2 cm/sec. Left internal carotid artery: Unremarkable. No occlusion or stenosis. Waveforms are normal. Peak systolic velocity 87.7-122.7 cm/sec. Left ICA/CCA ratio: 0.7, within normal limits. Left external carotid artery: No stenosis in the origin. Left vertebral artery: Unremarkable. Antegrade flow. US/CV carotid duplex BI* [id number] IMPRESSION: 1. No internal carotid arterial stenosis. 2. Elevated velocities in the common carotid arteries bilaterally could represent a degree of stenosis, though no calcifications are apparent. 3. Antegrade flow in bilateral vertebral arteries. REFERENCES: SRU CRITERIA. The degree of internal carotid artery stenosis is based on criteria defined by the Society of Radiologists in Ultrasound (SRU). Normal is no stenosis. Mild is less than 50% stenosis. Moderate is 50-69% stenosis. Severe is greater than 69% stenosis to near occlusion. Near occlusion is a markedly narrowed lumen. Total occlusion is no detectable patent lumen.
--- NOTE | 2025-03-02 16:57 | USCV_ITS ---
Harvey Li(Michael) Age: 64 Gender: M : 1960 Exam Date: 03/02/2025 10:49 Ordering Phys: Ashok Mensah MD Technologist: Matt Welsh Exam Location[place] [facility] [place] Indication: syncope BP: 136 / 93 HR: 86 Rhythm: Sinus Technical Quality: Adequate MEASUREMENTS (Male / Female) Normal Values 2D ECHO LV Diastolic Diameter PLAX 3.3 cm 4.2 - 5.9 / 3.9 - 5.3 cm IVS Diastolic Thickness 1.3 cm 0.6 - 1.0 / 0.6 - 0.9 cm IVS Systolic Thickness 1.6 cm LVPW Diastolic Thickness 1.6 cm 0.6 - 1.0 / 0.6 - 0.9 cm LVPW Systolic Thickness 1.8 cm LVOT Diameter 2.4 cm LV Ejection Fraction 2D Teich 75.8 % LV Ejection Fraction MOD 4C 66.1 % LV Ejection Fraction MOD 2C 75.6 % LV Ejection Fraction 2C AL 77.7 % LA Diameter 4.4 cm RA Systolic Volume 4C AL 65.6 ml RA Systolic Volume 4C MOD 66.2 ml LA Sys Volume AL 68.6 cm cubed LA Sys Volume Index AL 22.3 cm cubed/m squared Aorta at Sinotubular Diameter 2.6 cm M-MODE LA Ao Ratio MM 1.1 AV Cusp Separation MM 0.9 cm DOPPLER AV Peak Velocity 207.3 cm/s LVOT Peak Velocity 132.0 cm/s AV Area Cont Eq vti 3.0 cm squared AV Area Cont Eq pk 2.8 cm squared MV Peak Velocity 133.0 cm/s TR Peak Velocity 333.0 cm/s TR Peak Gradient 44.4 mmHg TR Mean Velocity 290.0 cm/s TR Mean Gradient 34.7 mmHg TR Velocity Time Integral 77.4 cm PV Peak Velocity 136.3 cm/s RV Ejection Time 0.3 s FINDINGS Left Ventricle Left ventricle is normal size. LV systolic function is normal with EF of 60-65%. No regional wall motion abnormalities. Right Ventricle Normal in size and function Right Atrium Normal in size Left Atrium Normal in size Mitral Valve Grossly normal. Mild mitral regurgitation. Aortic Valve Grossly normal. Mildly elevated transaortic valve gradient 12 mmHg. Mild aortic stenosis Tricuspid Valve Insufficient TR jet to calculate RVSP Pulmonic Valve Trace pulmonic regurgitation. Pericardium Normal Aorta Normal in size IVC Not visualized CONCLUSIONS Technically limited quality echocardiogram because per ultrasonic windows. LV systolic function is normal with EF of 60-65%. Mild mitral regurgitation. Mild aortic stenosis Trace pulmonic regurgitation Marck Abraham MD (Electronically Signed) Final Date: 02 March 2025 12:02 S
[2025-03-02 17:29] LABS: Glucose Point of Care 292 mg/dL (70-110)
[2025-03-02] MEDS: amiodarone 200 mg Tablet 400 MG PO (17:36)
[2025-03-02] MEDS: insulin lispro 100 unit/1 mL 8 UNIT SUBCUT (18:07)
[2025-03-02 18:27] LABS: Anion Gap 17.3 (5-19); Blood Urea Nitrogen 24 mg/dL (8-23); Calcium 10.6 mg/dL (8.5-10.5); Carbon Dioxide 18 mmol/L (22-29); Chloride 98 mmol/L (98-107); Glomerular Filtration Rate 85.2 mL/min (90-130); Glucose 293 mg/dL (65-115); Osmolality Calculated 283 mOsm/kg (285-295); Potassium 4.3 mmol/L (3.5-5.1); Sodium 129 mmol/L (136-145)
[2025-03-02 19:01] LABS: Glucose Point of Care 298 mg/dL (70-110)
[2025-03-02 20:18] LABS: Glucose Point of Care 285 mg/dL (70-110)
[2025-03-02] MEDS: insulin glargine 100 units/1 mL 10 UNIT SUBCUT (20:20)
[2025-03-02 21:28] LABS: Glucose Point of Care 229 mg/dL (70-110)
[2025-03-02 22:30] LABS: Glucose Point of Care 260 mg/dL (70-110)
[2025-03-02 23:15] LABS: Glucose Point of Care 235 mg/dL (70-110)
[2025-03-03] VITALS (52 sets, daily range): BP systolic 117–168; BP diastolic 73–105; PULSE 76–116; RESP 5–35; TEMP 36.4–37.1; O2SAT 80–98
[2025-03-03 00:18] LABS: Glucose Point of Care 280 mg/dL (70-110)
[2025-03-03 01:14] LABS: Glucose Point of Care 285 mg/dL (70-110)
--- NOTE | 2025-03-03 01:15 | PC.NURSE ---
Addendum entered by Nitza Razo RN 03/03/25 02:46: 0245 RN helped patient use restroom, patient now refusing to wear bipap at this time. Patient educated on importance of bipap mask. Original Note: 0115 RN Nitza spoke with Dr. Lopez regarding patients increasing glucose and anion gap. see orders for MD recommendation
[2025-03-03] MEDS: sodium chloride 0.9% 1,000 ML 999 ML IV (01:37)
[2025-03-03] MEDS: FUROsemide 10 mg/mL SDV 2mL 20 MG IVP (01:37)
[2025-03-03 02:57] LABS: Glucose Point of Care 305 mg/dL (70-110)
[2025-03-03 03:46] LABS: Glucose Point of Care 313 mg/dL (70-110)
[2025-03-03 04:54] LABS: Glucose Point of Care 334 mg/dL (70-110)
[2025-03-03 05:35] LABS: Basophils # 0.1 10^3/uL (0.0-0.1); Basophils % 0.9 %; Eosinophils # 0.2 10^3/uL (0.0-0.8); Eosinophils % 2.7 %; Hematocrit 45.4 % (37-53); Lymphocytes # 1.3 10^3/uL (0.8-4.8); Lymphocytes % 21.8 %; Mean Corpuscular HGB Conc 30.4 g/dL (30-55); Mean Corpuscular Hemoglobin 28.1 pg (27-33); Mean Corpuscular Volume 92.5 fl (82-101); Mean Platelet Volume 11.3 fL (7.4-10.4); Monocytes # 0.8 10^3/uL (0.2-0.9); Monocytes % 14.1 %; Neutrophils # 3.47 10^3/uL (1.8-7.7); Nucleated Red Blood Cells % 0 %; Platelet Count 182 10^3/cmm (157-399); Red Blood Count 4.91 10^6/uL (3.85-5.65); Red Cell Distribution Width 13.6 % (12.1-15.1); White Blood Count 5.88 10^3/uL (3.29-11.43)
[2025-03-03 06:03] LABS: Glucose Point of Care 339 mg/dL (70-110)
[2025-03-03 06:04] LABS: Blood Urea Nitrogen 23 mg/dL (8-23); Calcium 10.3 mg/dL (8.5-10.5); Carbon Dioxide 17 mmol/L (22-29); Chloride 100 mmol/L (98-107); Glomerular Filtration Rate 85.2 mL/min (90-130); Glucose 343 mg/dL (65-115); Osmolality Calculated 287 mOsm/kg (285-295); Sodium 130 mmol/L (136-145)
[2025-03-03 06:05] LABS: Glucose Point of Care 281 mg/dL (70-110)
[2025-03-03 06:23] LABS: Anion Gap 17.5 (5-19); Potassium 4.5 mmol/L (3.5-5.1)
[2025-03-03 06:44] LABS: Slide Review Slide Review Perform
[2025-03-03 06:54] LABS: Glucose Point of Care 341 mg/dL (70-110)
--- NOTE | 2025-03-03 07:29 | XR_ITS ---
WS: [id number] XR chest 1V portable [id number] REASON FOR EXAM: sob FINDINGS: Compared to the examination of 02/28/2025 there is subtle ill-defined opacity in the lower right lung field. The chest is otherwise unchanged without other new finding. XR/XR chest 1V portable [id number] IMPRESSION: Interval increased opacity in the right lower lung which could represent develo ping pneumonitis.
[2025-03-03] MEDS: tamsulosin 0.4 mg Capsule PO ×2 (07:40→17:44)
[2025-03-03] MEDS: metoprolol succinate ER (24 HR) 100 mg Tablet PO (07:41)
[2025-03-03] MEDS: amiodarone 200 mg Tablet 400 MG PO ×2 (07:41→17:44)
[2025-03-03] MEDS: apixaban 5 mg Tablet PO ×2 (07:41→21:14)
[2025-03-03] MEDS: insulin lispro 100 unit/1 mL SUBCUT ×3 (07:41→17:44)
[2025-03-03] MEDS: insulin glargine 100 units/1 mL 25 UNIT SUBCUT (07:42)
[2025-03-03 08:24] LABS: Alanine Aminotransferase 24 U/L (0-41); Albumin Level 3.3 g/dL (3.5-5.2); Alkaline Phosphatase 94 U/L (40-130); Aspartate Amino Transferase 16 U/L (0-40); Globulin 3.3 g/dL (1.3-4.6); Lipase 33 U/L (13-60); NT Pro B Type Natriuretic Pept 619 pg/mL (0-125); Total Bilirubin 0.6 mg/dL (0.15-1.2); Total Protein 6.6 g/dL (6.6-8.7)
[2025-03-03] MEDS: ondansetron 2 mg/ML SDV 2 mL 4 MG IVP (08:24)
[2025-03-03 08:36] LABS: Gamma Glutamyl Transferase 24 U/L (8-61)
[2025-03-03 10:29] LABS: Glucose Point of Care 401 mg/dL (70-110)
[2025-03-03] MEDS: insulin lispro 100 unit/1 mL 6 UNIT SUBCUT (10:57)
[2025-03-03 11:29] LABS: Glucose Point of Care 406 mg/dL (70-110)
[2025-03-03] MEDS: insulin lispro 100 unit/1 mL 12 UNIT SUBCUT (12:24)
[2025-03-03 13:00] LABS: Glucose Point of Care 422 mg/dL (70-110)
--- NOTE | 2025-03-03 13:01 | CT_ITS ---
WS: [id number] CT ABDOMEN PELVIS TECHNIQUE: Contrast-enhanced CT of the abdomen and pelvis with coronal and sagittal reformatted images. CLINICAL INFORMATION: evaluate pancreas COMPARISON: CT 10/07/2024 DLP: 1729.[address] scans at [facility] use at least one of these dose optimization techniques: automated exposure control; mA and/or kV adjustment per patient size (includes targeted exams where dose is matched to clinical indication); or iterative reconstruction. FINDINGS: Interval LEFT nephrectomy. Postoperative changes LEFT nephrectomy bed with surgical clips. Small amount of fluid about the tip of the spleen likely postoperative. A few small splenules. Normal RIGHT renal parenchymal enhancement. Diffuse fatty atrophy of the pancreas. No evidence of pancreatic mass. Slight bibasilar atelectasis. RIGHT adrenal gland is normal. Normal RIGHT renal parenchymal enhancement. Gallbladder is contracted. Normal caliber abdominal aorta. Retroaortic LEFT renal vein. Prostate measures 4.5 cm. Normal appendix in the RIGHT lower quadrant. Fat- containing umbilical hernia. CT/CT abdomen pelvis w con* [id number] IMPRESSION: 1. Interval LEFT nephrectomy for renal cell carcinoma. Postoperative changes i n the LEFT nephrectomy bed. 2. Diffuse fatty atrophy of the pancreas. No suspicious pancreatic lesions. 3. No other acute findings.
[2025-03-03] MEDS: insulin lispro 100 unit/1 mL 10 UNIT SUBCUT (13:08)
[2025-03-03] MEDS: iohexol 350 mg/mL 500 mL Btl (per mL) IV (14:18)
[2025-03-03 14:21] LABS: Glucose Point of Care 272 mg/dL (70-110)
[2025-03-03 15:19] LABS: Glucose Point of Care 245 mg/dL (70-110)
[2025-03-03 15:34] LABS: Ketone (Acetest) Serum Negative (Negative)
[2025-03-03 15:44] LABS: Alanine Aminotransferase 20 U/L (0-41); Alkaline Phosphatase 95 U/L (40-130); Anion Gap 14.2 (5-19); Aspartate Amino Transferase 15 U/L (0-40); Blood Urea Nitrogen 23 mg/dL (8-23); Calcium 10.4 mg/dL (8.5-10.5); Carbon Dioxide 22 mmol/L (22-29); Chloride 100 mmol/L (98-107); Globulin 3.2 g/dL (1.3-4.6); Glomerular Filtration Rate 85.2 mL/min (90-130); Glucose 240 mg/dL (65-115); Osmolality Calculated 286 mOsm/kg (285-295); Potassium 4.2 mmol/L (3.5-5.1); Sodium 132 mmol/L (136-145); Total Bilirubin 0.3 mg/dL (0.15-1.2); Total Protein 6.2 g/dL (6.6-8.7)
[2025-03-03] MEDS: pantoprazole 40 mg SDV IVP (16:01)
[2025-03-03 16:10] LABS: Glucose Point of Care 153 mg/dL (70-110)
--- NOTE | 2025-03-03 16:44 | P.PN_ITS ---
Subjective 2 Subjective: Patient was seen this morning, currently alert oriented x 3, following all commands, does report abdominal bloating, he did have a shortness of breath overnight needing BiPAP, he is disappointed with his elevated blood sugars, discussed he used up to 86 units of insulin yesterday, will watch him very closely today, repeat his BMP, will be a bit more aggressive with his insulin management, but watching him closely for the risk of hypoglycemia, goals to find him a regimen that can work here in the hospital and when he goes home Vitals/I&O/Wt Last Vital Signs Temp 97.8 F 03/03/25 07:30 Pulse 89 03/03/25 13:00 Resp 12 03/03/25 13:00 BP 136/103 03/03/25 07:30 Pulse Ox 93 03/03/25 13:32 O2 Del Method BiPAP 03/03/25 00:00 FiO2 21 03/03/25 02:40 03/03/25 03/03/25 03/03/25 06:59 14:59 22:59 Intake Total 1900 / 3600 480 / 480 Output Total 2050 Balance 1899 / 1549 480 / 480 Weight last 48 hrs Weight 169.5 kg Weight 168 kg Weight 168 kg Physical Exam 2 Const: COMMON NORMALS: no acute distress and patient oriented x3 Resp: COMMON NORMALS: normal respiratory effort, No retractions, No use of accessory muscles and clear to auscultation bilaterally AUSCULTATION: clear to auscultation bilaterally Cardio: COMMON NORMALS: regular rate, regular rhythm, S1 normal heart sound present and S2 normal heart sound present RATE: regular rate RHYTHM: r egular rhythm HEART SOUNDS: S1 normal heart sound present and S2 normal heart sound present GI: COMMON NORMALS: Normal to inspection, nondistended, normoactive bowel sounds present and non-tender Extremity: COMMON NORMALS: no calf tenderness and no pedal edema Neuro: COMMON NORMALS: patient oriented x3 Psych: COMMON NORMALS: mental status grossly normal Urinary Catheter Management: Sandoval: Cath Placed During This Visit: yes Reason for Continuing Indwelling Catheter: Accurate Measurement of Urinary Output in Critically Ill Patients Urinary Catheter Date of Insertion: 02/28/25 Urinary Catheter Time of Insertion: 15:23 Data 03/03/25 04:54 03/03/25 15:01 A&P Assessment and plan (1) DKA (diabetic ketoacidosis): - Difficult to control blood sugars, requiring every hour blood sugars - Likely side effect of Keytruda - DKA protocol, anion gap has closed -However blood sugars remain elevated -Yesterday used 86 units of insulin -Highly suspicious patient has developed type 1 diabetes, Keytruda adverse reaction - Insulin drip is off -Blood sugars remain elevated in the high 300s, anion gap is slowly creeping back up, developing metabolic acidosis -Continue high-dose sliding scale - 30 units twice daily -Recheck BMP at 1 PM, - Lipase within normal limits, LFTs within normal limits - Does have abdominal distention, given uncontrolled blood sugars will do CT scan abdomen pelvis evaluate pancreas -Recheck blood sugar after meal, -Will consider giving additional insulin - Monitor blood sugars closely - Ordered auto antibodies, C-peptide (2) Atrial fibrillation with RVR: - Switch to Eliquis 5 mg twice daily - Continue home metoprolol - Stop amiodarone drip switch to p.o. amiodarone 400 mg p.o. twice daily (3) BARBARA (acute kidney injury): - Creatinine 0.9 (4) Syncope: - Likely component of dehydration, A-fib with RVR, DKA - Cardiac echo, carotid artery ultrasound US/CV carotid duplex BI* [id number] IMPRESSION: 1. No internal carotid arterial stenosis. 2. Elevated velocities in the common carotid arteries bilaterally could represent a degree of stenosis, though no calcifications are apparent. 3. Antegrade flow in bilateral vertebral arteries. echo CONCLUSIONS Technically limited quality echocardiogram because per ultrasonic windows. LV systolic function is normal with EF of 60-65%. Mild mitral regurgitation. Mild aortic stenosis Trace pulmonic regurgitation (5) Diarrhea: - C. difficile pending Plan CHF: History of HFpEF. Does have 1+ pitting edema will hold off on Lasix for today given DKA as above Renal cell cancer: Status post nephrectomy. On Keytruda. Has been getting infusions locally and following up with Dr. Harkins after initial care in [place] where he still follows with Dr. Russo and administrative assistant receptionist Diogo ([phone]). HTN: Monitor blood pressures. KELLEE: Not using CPAP. DM2: Has been on metformin, Ozempic, has missed doses of Ozempic due to Keytruda infusions. Has been having diarrhea PDMP PDMP Reviewed: Not Reviewed Attestations 2 Medical Necessity Statement*: Patient requires hospitalization for hyperglycemia Diagnoses DKA (diabetic ketoacidosis) E11.10 Atrial fibrillation with RVR I48.91 BARBARA (acute kidney injury) N17.9 Syncope R55 Diarrhea R19.7
[2025-03-03 17:07] LABS: Glucose Point of Care 155 mg/dL (70-110)
[2025-03-03] MEDS: sodium chloride 0.9% 1,000 ML 50 ML IV (17:45)
[2025-03-03 18:15] LABS: Glucose Point of Care 175 mg/dL (70-110)
[2025-03-03] MEDS: insulin glargine 100 units/1 mL 30 UNIT SUBCUT (18:42)
[2025-03-03 18:53] LABS: Glucose Point of Care 187 mg/dL (70-110)
--- NOTE | 2025-03-03 19:59 | PC.NURSE ---
Verbal orders per Dr. Mensah to change Lantus orders from 3o units q12h to 15units at bedtime and 30units in the morning. Orders placed. See MAR
[2025-03-03 20:48] LABS: Glucose Point of Care 187 mg/dL (70-110)
[2025-03-03] MEDS: insulin glargine 100 units/1 mL 15 UNIT SUBCUT (21:15)
[2025-03-03 22:06] LABS: Glucose Point of Care 218 mg/dL (70-110)
--- NOTE | 2025-03-03 23:23 | PC.NURSE ---
Provider notified of upward trend in q1h accu-check blood glucose readings.
[2025-03-04] VITALS (285 sets, daily range): BP systolic 118–164; BP diastolic 76–99; PULSE 0–112; RESP 9–40; TEMP 36.7–36.8; O2SAT 80–99; BMI 45.4
[2025-03-04 01:12] LABS: Glucose Point of Care 231 mg/dL (70-110)
[2025-03-04 01:12] LABS: Glucose Point of Care 259 mg/dL (70-110)
--- NOTE | 2025-03-04 02:43 | PC.NURSE ---
Provider notified of patients BG reading of 259. Orders given to administer 6 units of humalog per low dose corrective protocol. Order placed. See MAR.
[2025-03-04] MEDS: insulin lispro 100 unit/1 mL 6 UNIT SUBCUT (03:12)
[2025-03-04 03:51] LABS: Basophils % 0.6 %; Eosinophils # 0.2 10^3/uL (0.0-0.8); Eosinophils % 3.2 %; Hematocrit 40.9 % (37-53); Lymphocytes # 1.3 10^3/uL (0.8-4.8); Lymphocytes % 19.5 %; Mean Corpuscular HGB Conc 32.8 g/dL (30-55); Mean Corpuscular Hemoglobin 28.7 pg (27-33); Mean Corpuscular Volume 87.6 fl (82-101); Mean Platelet Volume 11.3 fL (7.4-10.4); Monocytes # 0.9 10^3/uL (0.2-0.9); Monocytes % 13.3 %; Neutrophils # 3.99 10^3/uL (1.8-7.7); Neutrophils % 61.7 %; Nucleated Red Blood Cells % 0 %; Platelet Count 224 10^3/cmm (157-399); Red Blood Count 4.67 10^6/uL (3.85-5.65); Red Cell Distribution Width 13.5 % (12.1-15.1); White Blood Count 6.47 10^3/uL (3.29-11.43)
[2025-03-04 04:19] LABS: Anion Gap 15.3 (5-19); Blood Urea Nitrogen 21 mg/dL (8-23); Calcium 10.5 mg/dL (8.5-10.5); Carbon Dioxide 24 mmol/L (22-29); Chloride 99 mmol/L (98-107); Glomerular Filtration Rate 85.2 mL/min (90-130); Glucose 305 mg/dL (65-115); Osmolality Calculated 292 mOsm/kg (285-295); Potassium 4.3 mmol/L (3.5-5.1); Sodium 134 mmol/L (136-145)
--- NOTE | 2025-03-04 04:20 | PC.NURSE ---
Was passed along in report to stop fluids at midnight. Stopped NS @50ml/hr 03/04/25 at 0001.
[2025-03-04 06:14] LABS: C-Peptide 0.96 ng/mL (0.80-3.85)
[2025-03-04 06:29] LABS: Glucose Point of Care 288 mg/dL (70-110)
[2025-03-04 07:49] LABS: Glucose Point of Care 282 mg/dL (70-110)
[2025-03-04] MEDS: insulin lispro 100 unit/1 mL SUBCUT ×3 (07:52→21:19)
[2025-03-04] MEDS: insulin glargine 100 units/1 mL 40 UNIT SUBCUT (07:52)
[2025-03-04] MEDS: insulin lispro 100 unit/1 mL 8 UNIT SUBCUT (07:57)
[2025-03-04 09:07] LABS: Glucose Point of Care 312 mg/dL (70-110)
--- NOTE | 2025-03-04 09:12 | PC.NURSE ---
Dr. Mensah requested blood glucose be obtained at 0900, result was 312. I notified Dr. Mensah and he requested blood glucose be obtained again at 1000.
[2025-03-04 10:00] LABS: Glucose Point of Care 401 mg/dL (70-110)
[2025-03-04] MEDS: apixaban 5 mg Tablet PO ×2 (10:06→21:18)
[2025-03-04] MEDS: metoprolol succinate ER (24 HR) 100 mg Tablet PO (10:07)
[2025-03-04] MEDS: tamsulosin 0.4 mg Capsule PO ×2 (10:07→17:06)
[2025-03-04] MEDS: amiodarone 200 mg Tablet 400 MG PO ×2 (10:07→17:02)
[2025-03-04] MEDS: insulin lispro 100 unit/1 mL 10 UNIT SUBCUT (10:40)
[2025-03-04 12:15] LABS: Glucose Point of Care 270 mg/dL (70-110)
[2025-03-04] MEDS: insulin lispro 100 unit/1 mL 25 UNIT SUBCUT ×2 (12:15→17:49)
[2025-03-04 13:20] LABS: Glucose Point of Care 287 mg/dL (70-110)
[2025-03-04 14:20] LABS: Glucose Point of Care 243 mg/dL (70-110)
[2025-03-04] MEDS: pantoprazole 40 mg SDV IVP (15:04)
--- NOTE | 2025-03-04 16:12 | P.PN_ITS ---
Subjective 2 Subjective: Patient was seen this morning, currently he is alert x 3, following blood sugars are improving but in the 400s at times, still requiring every hour blood sugars, no chest pain, no palpitations, no dysuria, hematuria Vitals/I&O/Wt Last Vital Signs Temp 98.0 F 03/04/25 13:30 Pulse 81 03/04/25 16:00 Resp 18 03/04/25 16:00 BP 121/80 03/04/25 16:00 Pulse Ox 97 03/04/25 16:00 O2 Del Method Room Air 03/04/25 16:00 FiO2 21 03/03/25 23:58 03/04/25 03/04/25 03/04/25 06:59 14:59 22:59 Intake Total 313.333 / 1593.333 240 / 240 Output Total 600 / 900 Balance -286.667 / 693.333 240 / 240 Weight last 48 hrs Weight 169.5 kg Weight 169.5 kg Physical Exam 2 Const: COMMON NORMALS: no acute distress and patient oriented x3 Resp: COMMON NORMALS: normal respiratory effort, No retractions, No use of accessory muscles and clear to auscultation bilaterally AUSCULTATION: clear to auscultation bilaterally Cardio: COMMON NORMALS: regular rate, regular rhythm, S1 normal heart sound present and S2 normal heart sound present RATE: regular rate RHYTHM: r egular rhythm HEART SOUNDS: S1 normal heart sound present and S2 normal heart sound present GI: COMMON NORMALS: Normal to inspection, nondistended, normoactive bowel sounds present and non-tender Extremity: COMMON NORMALS: no pedal edema Neuro: COMMON NORMALS: patient oriented x3 Psych: COMMON NORMALS: mental status grossly normal Urinary Catheter Management: Sandoval: Cath Placed During This Visit: yes Reason for Continuing Indwelling Catheter: Accurate Measurement of Urinary Output in Critically Ill Patients Urinary Catheter Date of Insertion: 02/28/25 Urinary Catheter Time of Insertion: 15:23 Data 03/04/25 03:15 03/04/25 03:15 A&P Assessment and plan (1) DKA (diabetic ketoacidosis): - Difficult to control blood sugars, requiring every hour blood sugars - Likely side effect of Keytruda - DKA protocol, anion gap has closed -However blood sugars remain elevated -Yesterday used 86 units of insulin -Highly suspicious patient has developed type 1 diabetes, Keytruda adverse reaction - Insulin drip is off -Blood sugars remain elevated in the high 300s, anion gap is slowly creeping back up, developing metabolic acidosis - In the last 24 hours patient roughly used 66 units of the insulin sliding scale, and 45 units of Lantus, blood sugars range between 200-400, but in the evening time they did improve - Start him on NovoLog 25 units 3 times daily with meals, and a sliding scale on top of that -Lantus 40 units in the morning, 20 8 in the evening - Monitor BMP - Lipase within normal limits, LFTs within normal limits - Does have abdominal distention, given uncontrolled blood sugars will do CT scan abdomen pelvis evaluate pancreas CT/CT abdomen pelvis w con* [id number] IMPRESSION: 1. Interval LEFT nephrectomy for renal cell carcinoma. Postoperative changes in the LEFT nephrectomy bed. 2. Diffuse fatty atrophy of the pancreas. No suspicious pancreatic lesions. 3. No other acute findings. -Recheck blood sugar after meal, -Will consider giving additional insulin - Monitor blood sugars closely - Ordered auto antibodies, C-peptide (2) Atrial fibrillation with RVR: - Switch to Eliquis 5 mg twice daily - Continue home metoprolol - Stop amiodarone drip switch to p.o. amiodarone 400 mg p.o. twice daily (3) BARBARA (acute kidney injury): - Creatinine 0.9 (4) Syncope: - Likely component of dehydration, A-fib with RVR, DKA - Cardiac echo, carotid artery ultrasound US/CV carotid duplex BI* [id number] IMPRESSION: 1. No internal carotid arterial stenosis. 2. Elevated velocities in the common carotid arteries bilaterally could represent a degree of stenosis, though no calcifications are apparent. 3. Antegrade flow in bilateral vertebral arteries. echo CONCLUSIONS Technically limited quality echocardiogram because per ultrasonic windows. LV systolic function is normal with EF of 60-65%. Mild mitral regurgitation. Mild aortic stenosis Trace pulmonic regurgitation (5) Diarrhea: - C. difficile negative Plan CHF: History of HFpEF. Does have 1+ pitting edema will hold off on Lasix for today given DKA as above Renal cell cancer: Status post nephrectomy. On Keytruda. Has been getting infusions locally and following up with Dr. Harkins after initial care in [place] where he still follows with Dr. Russo and certified physician's assistant Diogo ([phone]). HTN: Monitor blood pressures. KELLEE: Not using CPAP. DM2: Has been on metformin, Ozempic, has missed doses of Ozempic due to Keytruda infusions. Has been having diarrhea PDMP PDMP Reviewed: Not Reviewed Attestations 2 Medical Necessity Statement*: Patient requires hospitalization for hyperglycemia, with type 1 diabetes concerns, side effect of Keytruda Diagnoses DKA (diabetic ketoacidosis) E11.10 Atrial fibrillation with RVR I48.91 BARBARA (acute kidney injury) N17.9 Syncope R55 Diarrhea R19.7
[2025-03-04 17:22] LABS: Glucose Point of Care 153 mg/dL (70-110)
[2025-03-04 18:18] LABS: Glucose Point of Care 160 mg/dL (70-110)
--- NOTE | 2025-03-04 18:33 | PC.NURSE ---
Shift summary: Uneventful shift. Up to a chair for about 50% of the day. Worked with physical therapy. Dr nassar sent order for dexcomm to inhouse pharmacy. Patient's insurance has initially denied coverage for it, in house pharmacy rep is working with insurance for approval. Insulin requirements during day shift: Insulin lispro: 86 units Lantus: 40 units
[2025-03-04 19:18] LABS: Glucose Point of Care 242 mg/dL (70-110)
[2025-03-04 21:10] LABS: Glucose Point of Care 213 mg/dL (70-110)
[2025-03-04] MEDS: insulin glargine 100 units/1 mL 10 UNIT SUBCUT (21:20)
[2025-03-05] VITALS (63 sets, daily range): BP systolic 113–186; BP diastolic 69–134; PULSE 76–124; RESP 7–32; TEMP 36.8; O2SAT 85–98; BMI 45.6
[2025-03-05 00:07] LABS: Glucose Point of Care 156 mg/dL (70-110)
[2025-03-05 03:02] LABS: Glucose Point of Care 205 mg/dL (70-110)
[2025-03-05 03:57] LABS: Glucose Point of Care 210 mg/dL (70-110)
[2025-03-05 06:40] LABS: Alanine Aminotransferase 21 U/L (0-41); Albumin Level 3.3 g/dL (3.5-5.2); Alkaline Phosphatase 93 U/L (40-130); Anion Gap 13.5 (5-19); Aspartate Amino Transferase 18 U/L (0-40); Blood Urea Nitrogen 18 mg/dL (8-23); Calcium 10.7 mg/dL (8.5-10.5); Carbon Dioxide 25 mmol/L (22-29); Chloride 102 mmol/L (98-107); Creatinine Clr Calc Pharmacy 142.7827; Globulin 3.3 g/dL (1.3-4.6); Glomerular Filtration Rate 85.2 mL/min (90-130); Glucose 260 mg/dL (65-115); Osmolality Calculated 293 mOsm/kg (285-295); Potassium 4.5 mmol/L (3.5-5.1); Sodium 136 mmol/L (136-145); Total Bilirubin 0.5 mg/dL (0.15-1.2); Total Protein 6.6 g/dL (6.6-8.7)
[2025-03-05 07:12] LABS: Glucose Point of Care 279 mg/dL (70-110)
[2025-03-05] MEDS: apixaban 5 mg Tablet PO (08:31)
[2025-03-05] MEDS: tamsulosin 0.4 mg Capsule PO (08:31)
[2025-03-05] MEDS: insulin lispro 100 unit/1 mL SUBCUT ×2 (08:31→12:33)
[2025-03-05] MEDS: insulin lispro 100 unit/1 mL 25 UNIT SUBCUT ×2 (08:31→12:33)
[2025-03-05] MEDS: insulin glargine 100 units/1 mL 40 UNIT SUBCUT (08:32)
[2025-03-05] MEDS: amiodarone 200 mg Tablet 400 MG PO (08:32)
[2025-03-05] MEDS: metoprolol succinate ER (24 HR) 100 mg Tablet PO (08:32)
[2025-03-05 09:56] LABS: Glucose Point of Care 418 mg/dL (70-110)
[2025-03-05] MEDS: FUROsemide 10 mg/mL SDV 4mL 40 MG IVP (10:59)
[2025-03-05 11:08] LABS: Glucose Point of Care 360 mg/dL (70-110)
[2025-03-05] MEDS: ondansetron 2 mg/ML SDV 2 mL 4 MG IVP (12:36)
--- NOTE | 2025-03-05 15:38 | PM.DCS ---
Discharge Providers Date of Admission: 02/28/25 12:47 Date of Discharge: March 05, 2025 Attending Provider at Admission: Ben Marie Attending Provider at Discharge: Ashok Mensah MD Primary Care Provider: William Black MD Diagnoses at Discharge Discharge Diagnosis (1) DKA (diabetic ketoacidosis): Status: Acute (2) Atrial fibrillation with RVR: Status: Acute (3) BARBARA (acute kidney injury): Status: Acute (4) Syncope: Status: Acute (5) Diarrhea: Status: Acute Reason for Visit Reason for Visit: fall/lost consciousness Hospital Course Hospital Course Harvey Li (Mark) is a 64 year old male with a history of atrial fibrillation, congestive heart failure, hypertension, obstructive sleep apnea, diabetes, and prior partial cystectomy (for kidney cancer), presenting after a syncopal episode yesterday afternoon following a fishing trip Patient was admitted to [facility] for diabetic ketoacidosis, highly suspicious that patient has converted to a type I diabetic, or of which are documented although rare side effects of Keytruda Patient was admitted to [facility], for Keytruda side effect, diabetic ketoacidosis, conversion to type 1 diabetes, with A1c of 5.3 - He had a prolonged ICU level stay - Was on insulin drip for 48 hours - Blood sugars are very difficult control, with anion gap continuing to widen, developing metabolic acidosis, hyperglycemia - Eventually patient's anion gap closed, bicarb was reasonable, blood sugars reasonable, transition off insulin drip - Off his insulin drip patient's blood sugars were very difficult to control - He required very high doses of insulin - With every hour blood sugar checks - This had to be monitored in ICU due to high risk of hypoglycemia, with the patient that is insulin na?ve, rare Keytruda side effect, and high doses of insulin required, and every hour blood sugar checks - Eventually patient's blood sugars have been reasonable although still on the higher side anywhere between 200-300, but typically in the morning his blood sugars are in the 400s - Discussed with patient that he is going to require gradual increase in his insulin doses, to more effectively control his blood sugars - But I think the regiment of Lantus 40 units in the morning, 10 units in the evening works to control his blood sugar throughout the day - Terms of NovoLog 25 units 3 times daily with meals, plus the insulin sliding scale on top of that - He has blood sugars in the evening times do come down to less than 200 - He tends to have elevated blood sugars in the morning, requiring higher doses of insulin - Given that he has a rare Keytruda side effect, - Discussed with patient that there is a high likelihood that this PD-1 inhibitor has precipitated destruction of pancreatic beta cells, resulting in insulin deficiency and abrupt hyperglycemia, this syndrome is termed checkpoint inhibitor associated autoimmune diabetes mellitus and is rare, occurring in 0.2 to 1% of patients - [place] [employer] highlights that this form of diabetes can occur at any time during therapy, often with a low or undetectable C-peptide, and may be antibody negative and over half of cases suggesting a distinct pathobiology from classic type 1 diabetes, however the presence of islet autoantibodies especially anti-SANJUANA and high risk HLA haplotype's are associated with earlier and more severe presentations including DKA - The median time of onset is typically within 3 to 4 months of therapy initiation, but cases have been reported after a single dose or after prolonged exposure -Autoantibodies have been ordered, C-peptide ordered - I have looked at the literature about this Keytruda side effect, side effect can last over a year, and might be lifelong - We had extensive discussions about his diabetes during his hospitalization, diabetic education, diet control, monitoring for hypoglycemia, extensive discussions of hypoglycemia kills, hypoglycemia plan - Patient and voiced understanding, all question answered, agreed to proceed - In terms of his Keytruda, he has received 1 dose, further dosing and decision if and when to resume the medication will be based upon shared decision making between his oncologist at [facility] Dr. Haynes and Dr. Harkins Patient's hospitalization was complicated with A-fib with RVR, requiring amiodarone drip, overall clinically improving transition to p.o. amiodarone, his Eliquis dose was adjusted to 5 mg twice daily - We had a detailed discussion with him about his Eliquis dosing, I tried to find in the records why he was put on 5 mg once daily, and could not find an exact reason - Nonetheless his creatinine is stable, he does have a history of nephrectomy, nonetheless I have discharged him on Eliquis 5 mg twice daily, discussed with him to monitor for his risk of bleeding, if any significant bleeding episodes, or bloody or black stools to go to emergency room -inject lantus 40subcut qam and 10 units qpm -inject novolog 25 units three times daily with meals -on top of novolog (25 units tidwmals) inject sliding scale as below with meals -Please monitor your blood sugars closely -Monitor your blood sugars 3 times daily as after meals -Please record your blood sugars, and a blood sugar log -For your NovoLog sliding -Please inject blood sugar after meals based on sliding scale provided -Do not inject insulin if you do not eat as hypoglycemia kills -This is a NovoLog sliding scale -Insulin sliding ?fingerstick? Insulin ?141-180?0 units/sq 181-220?2 units/sq ?221-260?4 units/sq ?261-300 6 units/sq ?301-350?8 units/sq ?351-400 10 units/sq ?401-450?12 units/sq >450? 14units/sq -If your blood sugar is greater than 500 go to the emergency room -If your blood sugar is less than 60 or at anytime you feel lightheaded or dizzy or diaphoretic or have chest palpitations check your blood sugar, and eat a hard candy or drink orange juice and go immediately to the emergency room -Remember hypoglycemia kills, so if his blood sugar is less than 60 we have to increase it by taking in a sugary meal such as a hard candy or orange juice and go to the emergency room -If you have any questions please call us where here to help Physical Exam Const: COMMON NORMALS: no acute distress and patient oriented x3 Resp: COMMON NORMALS: normal respiratory effort, No retractions, No use of accessory muscles and clear to auscultation bilaterally AUSCULTATION: clear to auscultation bilaterally Cardio: COMMON NORMALS: regular rate, regular rhythm, S1 normal heart sound present and S2 normal heart sound present RATE: regular rate RHYTHM: regular rhythm HEART SOUNDS: S1 normal heart sound present and S2 normal heart sound present GI: COMMON NORMALS: Normal to inspection, nondistended, normoactive bowel sounds present and non-tender Extremity: COMMON NORMALS: no pedal edema Neuro: COMMON NORMALS: patient oriented x3 Psych: COMMON NORMALS: mental status grossly normal Urinary Catheter Management: Sandoval: Cath Placed During This Visit: yes Reason for Continuing Indwelling Catheter: Accurate Measurement of Urinary Output in Critically Ill Patients Urinary Catheter Date of Insertion: 02/28/25 Urinary Catheter Time of Insertion: 15:23 Discharge Data Studies Completed and Pending Completed Studies During Hospitalization Category Date Time Status CT abdomen pelvis w con* [id number] Routine Cat Scan 03/03/25 13:[address] cervical spin wo con* [id number] Stat Cat Scan 02/28/25 09:[address] head wo con* [id number] Stat Cat Scan 02/28/25 09:14 Completed XR chest 1V portable [id number] Routine Exams 03/03/25 07:29 Completed XR chest 1V portable [id number] Stat Exams 02/28/25 09:28 Completed CV carotid duplex BI* [id number] Routine Ultrasound 03/02/25 16:57 Completed CV. echo complete* [id number] Routine Ultrasound 03/02/25 16:57 Completed Pending at discharge Category Date Time Status C.Diff PCR (Lab) Routine Lab 02/28/25 17:02 Uncollected Comprehensive Metabolic Panel AM LABS Lab 03/06/25 04:00 Ordered Comprehensive Metabolic Panel AM LABS Lab 03/07/25 04:00 Ordered Diabetes Type 1 Autoantibody Routine Lab 03/02/25 17:37 Received Glutamic Acid Decarboxylase AB Routine Lab 03/02/25 17:37 Received Insulin Autoantibody Routine Lab 03/02/25 17:37 Received Radiology Impressions Head CT 02/28/25 09:14 IMPRESSION: No mass effect, layering hemorrhage or hydocephalus is demostrated. No acute intracranial changes are appreciated. Cervical Spine CT 02/28/25 09:29 IMPRESSION: Cervical spine alignment is maintained with no fracture or dislocation appreciated. Carotid Doppler Study 03/02/25 16:57 IMPRESSION: 1. No internal carotid arterial stenosis. 2. Elevated velocities in the common carotid arteries bilaterally could represent a degree of stenosis, though no calcifications are apparent. 3. Antegrade flow in bilateral vertebral arteries. REFERENCES: SRU CRITERIA. The degree of internal carotid artery stenosis is based on criteria defined by the Society of Radiologists in Ultrasound (SRU). Normal is no stenosis. Mild is less than 50% stenosis. Moderate is 50-69% stenosis. Severe is greater than 69% stenosis to near occlusion. Near occlusion is a markedly narrowed lumen. Total occlusion is no detectable patent lumen. Chest X-Ray 03/03/25 07:29 IMPRESSION: Interval increased opacity in the right lower lung which could represent developing pneumonitis. Abdomen/Pelvis CT 03/03/25 13:01 IMPRESSION: 1. Interval LEFT nephrectomy for renal cell carcinoma. Postoperative changes in the LEFT nephrectomy bed. 2. Diffuse fatty atrophy of the pancreas. No suspicious pancreatic lesions. 3. No other acute findings. Laboratory Results WBC 6.47 10^3/uL (3.29-11.43) 03/04/25 03:15 RBC 4.67 10^6/uL (3.85-5.65) 03/04/25 03:15 Hgb 13.40 g/dL (11.27-16.99) 03/04/25 03:15 Hct 40.9 % (37-53) 03/04/25 03:15 MCV 87.6 fl (82-101) D 03/04/25 03:15 MCH 28.7 pg (27-33) 03/04/25 03:15 MCHC 32.8 g/dL (30-55) D 03/04/25 03:15 RDW 13.5 % (12.1-15.1) 03/04/25 03:15 Plt Count 224 10^3/cmm (157-399) 03/04/25 03:15 MPV 11.3 fL (7.4-10.4) H 03/04/25 03:15 Neut % (Auto) 61.7 % 03/04/25 03:15 Lymph % (Auto) 19.5 % 03/04/25 03:15 [place] % (Auto) 13.3 % 03/04/25 03:15 Eos % (Auto) 3.2 % 03/04/25 03:15 Baso % (Auto) 0.6 % 03/04/25 03:15 Neut # (Auto) 3.99 10^3/uL (1.8-7.7) 03/04/25 03:15 Lymph # (Auto) 1.3 10^3/uL (0.8-4.8) 03/04/25 03:15 [place] # (Auto) 0.9 10^3/uL (0.2-0.9) 03/04/25 03:15 Eos # (Auto) 0.2 10^3/uL (0.0-0.8) 03/04/25 03:15 Baso # (Auto) 0.0 10^3/uL (0.0-0.1) 03/04/25 03:15 Nucleated RBC % (auto) 0 % 03/04/25 03:15 Nucleated RBCs # 0.0 /100WBC 03/04/25 03:15 Specimen Type Arterial 02/28/25 11:00 Sample Site Radial, right 02/28/25 11:00 ABG pH 7.23 (7.35-7.45) L 02/28/25 11:00 ABG pCO2 31.2 mmHg (35-45) L 02/28/25 11:00 ABG pO2 93.3 mmHg (80.0-100.0) 02/28/25 11:00 ABG PO2/FiO2 Ratio 444 02/28/25 11:00 ABG HCO3 12.9 mmol/L (22-26) L 02/28/25 11:00 ABG O2 Saturation 96.7 02/28/25 11:00 ABG Base Excess -13.3 mmol/L (-2.0-2.0) L 02/28/25 11:00 Pepe Test Pos 02/28/25 11:00 A-a O2 Gradient 2.1 mmHg (5-10) L 02/28/25 11:00 Hematocrit 47.8 % (42-52) 02/28/25 11:00 Hgb O2 Saturation 94.3 % (95-100) L 02/28/25 11:00 Carboxyhemoglobin 1.4 %THgb (0.4-20.1) 02/28/25 11:00 Methemoglobin 1.1 % (0.4-1.5) 02/28/25 11:00 Total Hemoglobin 15.6 g/dL (14-18) 02/28/25 11:00 Sodium 128.0 mmol/L (131-143) L 02/28/25 11:00 Potassium 5.2 mmol/L (3.5-5.0) H 02/28/25 11:00 Glucose 441.0 mg/dL (70-115) H 02/28/25 11:00 Ionized Calcium 1.5 mmol/L (1.1-1.4) H 02/28/25 11:00 O2 Delivery Device Room air 02/28/25 11:00 FiO2 21.0 % 02/28/25 11:00 Mechanical Engineering Technician ID [place] 02/28/25 11:00 Sodium 136 mmol/L (136-145) 03/05/25 06:03 Potassium 4.5 mmol/L (3.5-5.1) 03/05/25 06:03 Chloride 102 mmol/L (98-107) 03/05/25 06:03 Carbon Dioxide 25 mmol/L (22-29) 03/05/25 06:03 Anion Gap 13.5 (5-19) 03/05/25 06:03 BUN 18 mg/dL (8-23) 03/05/25 06:03 Creatinine 0.9 mg/dL (0.7-1.2) 03/05/25 06:03 GFR Calculation 85.2 mL/min (90-130) L 03/05/25 06:03 Glucose 260 mg/dL (65-115) H 03/05/25 06:03 POC Glucose 360 mg/dL (70-110) H 03/05/25 11:05 Estimat Average Glucose 111 02/28/25 17:21 Hemoglobin A1c 5.5 % (4.0-6.0) 02/28/25 17:21 C-Peptide 0.96 ng/mL (0.80-3.85) 03/02/25 17:37 Calculated Osmolality 293 mOsm/kg (285-295) 03/05/25 06:03 Calcium 10.7 mg/dL (8.5-10.5) H 03/05/25 06:03 Phosphorus 2.5 mg/dL (2.5-4.5) 03/01/25 08:50 Magnesium 1.7 mg/dL (1.7-2.3) 03/01/25 08:50 Total Bilirubin 0.5 mg/dL (0.15-1.2) 03/05/25 06:03 Direct Bilirubin 0.20 mg/dL (0.00-0.30) 03/03/25 05:30 GGT 24 U/L (8-61) 03/03/25 05:30 AST 18 U/L (0-40) 03/05/25 06:03 ALT 21 U/L (0-41) 03/05/25 06:03 Alkaline Phosphatase 93 U/L (40-130) 03/05/25 06:03 Troponin T Baseline 32 ng/L (0-15) H 02/28/25 09:13 Troponin T 120 Minute 27.72 ng/L (0-15) H 02/28/25 11:39 Delta Troponin T -4.28 ABS# (0-10) L 02/28/25 11:39 Troponin T Hi Sens 6Hr 27.12 ng/L (0-15) H 02/28/25 15:12 Troponin T Hi Sens 6Hr Delta -4.88 ng/L (0-12) L 02/28/25 15:12 NT-Pro-B Natriuret Pep 619 pg/mL (0-125) H 03/03/25 05:30 Total Protein 6.6 g/dL (6.6-8.7) 03/05/25 06:03 Albumin 3.3 g/dL (3.5-5.2) L 03/05/25 06:03 Globulin 3.3 g/dL (1.3-4.6) 03/05/25 06:03 Lipase 33 U/L (13-60) 03/03/25 05:30 TSH 3.18 uIU/mL (0.27-4.20) 02/28/25 19:19 Urine Color Yellow (Yellow) 02/28/25 10:24 Urine Appearance Clear (CLEAR) 02/28/25 10:24 Urine pH 5.5 (5-7) 02/28/25 10:24 Ur Specific Allgood 1.028 (1.005-1.030) 02/28/25 10:24 Urine Protein 1+ (Negative) A 02/28/25 10:24 Urine Glucose (UA) 3+ (Normal) H 02/28/25 10:24 Urine Ketones 3+ (Negative) H 02/28/25 10:24 Urine Blood Trace (Negative) A 02/28/25 10:24 Urine Nitrate Negative (Negative) 02/28/25 10:24 Urine Bilirubin Negative (Negative) 02/28/25 10:24 Urine Urobilinogen 1.0 mg/dL (Negative) 02/28/25 10:24 Ur Leukocyte Esterase Negative (Negative) 02/28/25 10:24 Urine RBC 0-2 /hpf (0-2) 02/28/25 10:24 Urine WBC 0-5 /hpf (0-5) 02/28/25 10:24 Ur Squamous Epith Cells 0-5 /hpf (0-5) 02/28/25 10:24 Amorphous Sediment Not Reportable 02/28/25 10:24 Urine Bacteria None seen /hpf (NONE) 02/28/25 10:24 Hyaline Casts 13.22 /lpf 02/28/25 10:24 Fine Granular Casts 0-4 /lpf H 02/28/25 10:24 Serum Ketones Negative (Negative) 03/03/25 15:01 Vitals Last Vital Signs Temp 98.2 F 03/05/25 04:00 Pulse 107 H 03/05/25 12:00 Resp 21 H 03/05/25 12:00 BP 150/94 03/05/25 12:00 Pulse Ox 96 03/05/25 11:00 O2 Del Method Room Air 03/05/25 11:00 FiO2 21 03/03/25 23:58 Discharge Plan Discharge Patient Disposition: Home Condition: Stable Prescriptions: New (DME) Dexcom G6 Transmitter Device See Rx Instructions .Route Qty: 1 0RF Rx Instructions: As directed (DME) Dexcom G6 Sensor Device See Rx Instructions .Route Qty: 3 0RF Rx Instructions: As directed (DME) Dexcom G6 Flotation Tank Operator Misc See Rx Instructions .Route Qty: 1 0RF Rx Instructions: As directed insulin glargine [Lantus U-100 Insulin] 100 unit/mL Solution See Rx Instructions .ROUTE .COMPLEX 30 Days Qty: 30 0RF Rx Instructions: 40units qam and 10 units qpm insulin aspart U-100 [Novolog FlexPen U-100 Insulin] 100 unit/mL (3 mL) insulin pen 25 unit SUBCUT TIDWMEAL 30 Days Qty: 30 0RF Rx Instructions: 25units tidwmeal, plus low dose insulin sliding scale provided amiodarone [Pacerone] 200 mg Tablet See Rx Instructions .ROUTE .COMPLEX Qty: 60 0RF Rx Instructions: 400mg(2tabs) bid for 3 days, 200mg(1tab) bid for 3 days, 200mg(1tab) daily glucagon HCl [Glucagon (HCl) Emergency Kit] 1 mg recon soln 1 mg IM Q20M PRN (Reason: hypoglycemia) Qty: 1 0RF Rx Instructions: until target blood sugar attained (DME) Dexcom G6 Flotation Tank Operator Misc See Rx Instructions .Route Qty: 1 0RF Rx Instructions: As directed (DME) Dexcom G6 Sensor Device See Rx Instructions .Route Qty: 3 0RF Rx Instructions: [place] [place] Dexcom G6 Transmitter Device See Rx Instructions .Route Qty: 1 0RF Rx Instructions: As directed (DME) glucometer testing kit See Rx Instructions .Route .MEDSUPPLY Qty: 1 0RF Rx Instructions: Glucometer testing kit Lancets #100 Strips #100 (DME) FreeStyle Linh 3 Sensor Device See Rx Instructions .Route Qty: 2 0RF Rx Instructions: [place] [place] FreeStyle Linh 3 Myrtle Misc See Rx Instructions .Route Qty: 1 0RF Rx Instructions: As directed Continued omega-3 fatty acids 1,000 mg capsule 1,000 mg PO .qod tamsulosin [Flomax] 0.4 mg capsule 0.4 mg PO BID glucosamine-chondroitin 900 mg tablet 900 mg PO .everyotherday acetaminophen 325 mg capsule 325 mg PO QID PRN (Reason: Pain) metoprolol succinate 100 mg tablet extended release 24 hr 100 mg PO DAILY (DME) Diabetic Shoes with 3 Custom Inserts See Rx Instructions .Route .MEDSULY Qty: 1 0RF Rx Instructions: As directed to HOME furosemide 40 mg tablet See Rx Instructions .ROUTE .COMPLEX Qty: 120 3RF Dose Instruction: TAKE 1 TABLET BY MOUTH EVERY DAY, MAY TAKE ADDITIONAL DOSE NEEDED FOR SWELLING OR SHORTNESS OF BREATH Rx Instructions: TAKE 1 TABLET BY MOUTH EVERY DAY, MAY TAKE ADDITIONAL DOSE NEEDED FOR SWELLING OR SHORTNESS OF BREATH prochlorperazine maleate [Compazine] 10 mg tablet 10 mg PO Q4H PRN (Reason: mild nausea) Qty: 30 3RF atorvastatin 20 mg tablet 20 mg PO DAILY potassium chloride 20 mEq tablet,ER particles/crystals See Rx Instructions .ROUTE .COMPLEX Rx Instructions: TAKE 1 TABLET BY MOUTH EVERY DAY, MAY TAKE EXTRA tablet with DOSE OF FUROSEMIDE NEEDED FOR ELECTROLYTE DEPLETION. Changed Eliquis 5 mg tablet 5 mg PO BID 30 Days Qty: 60 0RF Discontinued Ozempic 0.25 mg or 0.5 mg (2 mg/3 mL) pen injector 0.25 mg SUBCUT Q7D Rx Instructions: Monday metformin 1,000 mg tablet 1,000 mg PO BID Discharge Orders: Discharge Order (Routine); Ordered 03/05/25 Ordered By: Ashok Mensah Referrals: William Black MD [Primary Care Provider, [facility]] - 03/12/25 10:15 am Tami Singh MD [Physician, Endocrinology] - 03/06/25 Discharge Diet: Diabetic Discharge Activity: Resume usual activity Patient Instructions: Amiodarone (By mouth) (Cordarone, Pacerone), Glucagon (By injection) (GlucaGen HypoKit, GlucaGen, Glucagon..., Insulin Aspart, Recombinant (By injection) (Novolog, Novolog..., Insulin Glargine (By injection) (Lantus, Lantus SoloStar, Toujeo, Semglee), A-fib (Atrial Fibrillation) (DC), Hypoglycemia in a Person with Diabetes (DC), Fall Prevention for Older Adults (DC), Basic Carbohydrate Counting (DC), What to Do if Your Blood Sugar is Low (DC), Diabetes Type 1: Management (DC), Opioid Safety, Pain Management, Stroke Stoplight Activity Restrictions/Additional Instructions: -inject lantus 40subcut qam and 10 units qpm -inject novolog 25 units three times daily with meals -on top of novolog (25 units tidwmals) inject sliding scale as below with meals -Please monitor your blood sugars closely -Monitor your blood sugars 3 times daily as after meals -Please record your blood sugars, and a blood sugar log -For your NovoLog sliding -Please inject blood sugar after meals based on sliding scale provided -Do not inject insulin if you do not eat as hypoglycemia kills -This is a NovoLog sliding scale -Insulin sliding ?fingerstick? Insulin ?141-180?0 units/sq 181-220?2 units/sq ?221-260?4 units/sq ?261-300 6 units/sq ?301-350?8 units/sq ?351-400 10 units/sq ?401-450?12 units/sq >450? 14units/sq -If your blood sugar is greater than 500 go to the emergency room -If your blood sugar is less than 60 or at anytime you feel lightheaded or dizzy or diaphoretic or have chest palpitations check your blood sugar, and eat a hard candy or drink orange juice and go immediately to the emergency room -Remember hypoglycemia kills, so if his blood sugar is less than 60 we have to increase it by taking in a sugary meal such as a hard candy or orange juice and go to the emergency room -If you have any questions please call us where here to help Discharge Attestations Time Spent in Discharge Care*: greater than 30 min Quality Metrics Clinical Quality Measures [ No reported AMI, CVA or VTE this stay] Coding Level of Care Code 35613 Total time (in minutes) for Discharge: 45 Diagnoses DKA (diabetic ketoacidosis) E11.10 Atrial fibrillation with RVR I48.91 BARBARA (acute kidney injury) N17.9 Syncope R55 Diarrhea R19.7
--- NOTE | 2025-03-05 16:53 | PC.NURSE ---
Patient was discharged with all discharge instructions being given. Diabetes type 1 education was given. Education and demonstration on how to use manual glucometer. Education on how to keep sugar levels charted and how to use insulin scale was given. Education on how to use insulin properly and how to administer it was given. Ross from pharmacy came down and educated on how to use Dexacom. All medication was delivered to bedside and education on the medication was given. All belongings were sent with the patient and patient was stable upon discharge.
[2025-03-07 19:25] LABS: Glutamic Acid Decarboxylase AB >250 IU/mL (<5)
[2025-03-08 01:45] LABS: GAD Insulin Autoantibody <0.4 U/mL (<0.4)
[2025-03-12 14:34] LABS: GAD 65 IA-2 Antibody 20.6 U/mL (<5.4); GAD Insulin Autoantibody <0.4 U/mL (<0.4); Glutamic Acid Decarboxylase 65 >250 IU/mL (<5); Zinc Transporter 8 AB <10 U/mL (<15)
== END 2025-03-05 16:30 | disposition home or self-care (01) | DRG 638 ==
LOC: ER 11:56 → ICU 12:48
PROVIDERS: Admitting Provider Internal Medicine; Emergency Provider Family Medicine; PCP Family Medicine; Visit Provider Family Medicine
DX: E09.10 Drug or chemical induced diabetes mellitus with ketoacidosis without coma (principal); C64.9 Malignant neoplasm of unspecified kidney, except renal pelvis; I50.32 Chronic diastolic (congestive) heart failure; N17.9 Acute kidney failure, unspecified; I48.91 Unspecified atrial fibrillation; I11.0 Hypertensive heart disease with heart failure; G47.33 Obstructive sleep apnea (adult) (pediatric); E86.0 Dehydration; T50.995A Adverse effect of other drugs, medicaments and biological substances, initial encounter; R19.7 Diarrhea, unspecified; Z79.01 Long term (current) use of anticoagulants; Z79.84 Long term (current) use of oral hypoglycemic drugs; Z79.899 Other long term (current) drug therapy; Z79.85 Long-term (current) use of injectable non-insulin antidiabetic drugs; Z91.013 Allergy to seafood; Z87.891 Personal history of nicotine dependence; Z79.69 Long term (current) use of other immunomodulators and immunosuppressants; Z90.5 Acquired absence of kidney
CPT/HCPCS: 36415; 36416; 36600; 51702; 70450; 71045; 72125; 74177; 80048; 80051; 80053; 80076; 81001; 82009; 82330; 82805; 82962; 82977; 83036; 83519; 83690; 83735; 83880; 84100; 84443; 84484; 84681; 85025; 86337; 86341; 93005; 93306; 93880; 94660; 96361; 96372; 96374; 96375; 96376; 97161; 97165; 99285; 99291; J0283; J1815; J1938; J2405; J2470; J3490; J7030; J7120; J7799; J9999

== ENCOUNTER 2025-03-26 07:45 | Oncology outpatient (recurring) (ONCR) | payer OTHER, SELFPAY ==
[2025-02-28 12:31] LABS: T3 Free 6.7 PG/ML (2.0-4.4); Thyroid Stimulating Hormone 0.01 uIU/mL (0.27-4.20)
[2025-03-11 13:56] LABS: Basophils % 0.5 %; Eosinophils # 0.2 10^3/uL (0.0-0.8); Eosinophils % 2.3 %; Hematocrit 41.1 % (37-53); Lymphocytes # 1.6 10^3/uL (0.8-4.8); Lymphocytes % 20.5 %; Mean Corpuscular HGB Conc 32.6 g/dL (30-55); Mean Corpuscular Hemoglobin 28.7 pg (27-33); Mean Platelet Volume 11.1 fL (7.4-10.4); Monocytes # 0.9 10^3/uL (0.2-0.9); Monocytes % 11.6 %; Neutrophils # 4.97 10^3/uL (1.8-7.7); Neutrophils % 64.1 %; Nucleated Red Blood Cells % 0 %; Platelet Count 323 10^3/cmm (157-399); Red Blood Count 4.67 10^6/uL (3.85-5.65); Red Cell Distribution Width 13.1 % (12.1-15.1); White Blood Count 7.76 10^3/uL (3.29-11.43)
[2025-03-11 14:21] LABS: Alanine Aminotransferase 25 U/L (0-41); Albumin Level 3.3 g/dL (3.5-5.2); Alkaline Phosphatase 133 U/L (40-130); Anion Gap 16.5 (5-19); Aspartate Amino Transferase 22 U/L (0-40); Blood Urea Nitrogen 24 mg/dL (8-23); Calcium 9.7 mg/dL (8.5-10.5); Carbon Dioxide 22 mmol/L (22-29); Chloride 99 mmol/L (98-107); Globulin 3.2 g/dL (1.3-4.6); Glomerular Filtration Rate 67.6 mL/min (90-130); Glucose 304 mg/dL (65-115); Osmolality Calculated 291 mOsm/kg (285-295); Potassium 4.5 mmol/L (3.5-5.1); Sodium 133 mmol/L (136-145); Thyroid Stimulating Hormone 0.01 uIU/mL (0.27-4.20); Total Bilirubin 0.3 mg/dL (0.15-1.2); Total Protein 6.5 g/dL (6.6-8.7)
[2025-03-11 15:04] LABS: Cortisol Random 3.81 ug/dL (2.47-19.5)
[2025-03-11 15:06] LABS: Free T4 Free Thyroxine 1.78 ng/dL (0.82-1.77); T3 Free 3.7 PG/ML (2.0-4.4)
[2025-03-26] MEDS: cosyntropin 0.25 mg SDV IVP (08:08)
[2025-03-26 08:55] LABS: Cosyntropin Baseline 17.58 mcg/dL
[2025-03-26 09:30] LABS: Cosyntropin 30 Minute 24.69 mcg/dL
[2025-03-26 09:50] VITALS: BP 112/74; PULSE 98; RESP 18; TEMP 36.8; O2SAT 95
[2025-03-26 09:57] LABS: Cosyntropin 1 Hour 25.77 mcg/dL
== END 2025-03-31 23:59 | disposition home or self-care (01) ==
PROVIDERS: Internal Medicine Medical Oncology; PCP Family Medicine; Visit Provider Internal Medicine
DX: Z53.9 Procedure and treatment not carried out, unspecified reason; R79.89 Other specified abnormal findings of blood chemistry; Z79.899 Other long term (current) drug therapy
CPT/HCPCS: 36415; 80053; 82533; 84439; 84443; 84481; 85025; J0834

== ENCOUNTER 2025-04-04 06:59 | Emergency (ER) | payer OTHER, SELFPAY ==
[2025-04-04 07:05] VITALS: BP 119/83; PULSE 81; RESP 17; TEMP 36.9; O2SAT 96; BMI 45.6
--- NOTE | 2025-04-04 08:12 | ED_ITS ---
HPI - General Adult General: Chief complaint: General Medical Stated complaint: issue with diabetes sensor Time Seen by Provider: 04/04/25 07:04 History of Present Illness: 64-year-old male presents emergency room with difficulties with his diabetic sensor. He has G7 sensors for his Dexcom but his send his critical systems technician is a G6 and cannot get it since he is leaving on vacation and relies on these to monitor his blood sugars. Because of the holiday most of the pharmacies and his primary care doctors office are closed. Goal blood glucose when he arrives here is 197. He states this is typical range that he usually sees with his current treatment regimen. Related Data Home Medications ?Medication ?Instructions ?Recorded ?Confirmed omega-3 fatty acids 1,000 mg 1,000 mg PO .qod 05/03/22 03/19/25 capsule metoprolol succinate 100 mg 100 mg PO DAILY 09/20/24 0 03/19/25 tablet,extended release 24 hr acetaminophen 325 mg capsule 325 mg PO QID PRN Pain 03/19/25 antiarthritic combination no.2 900 900 mg PO .everyoth erday 01/16/25 03/19/25 mg tablet (glucosamine-chondroitin) tamsulosin 0.4 mg capsule (Flomax) 0.4 mg PO BID 01/1603/19/25 atorvastatin 20 mg tablet 20 mg PO DAILY 02/28/2503/02 potassium chloride 20 mEq See Rx Instructions .Route . COMPLEX 02/28/25 03/19/25 tablet,extended release(part/cryst) Previous Rx's ?Medication ?Instructions ?Recorded Diabetic Shoes with 3 Custom #1 ea 12/22/23 Inserts furosemide 40 mg tablet See Rx Instructions .Route 0 12/31/24 .COMPLEX #120 tabs prochlorperazine maleate 10 mg 10 mg PO Q4H PRN mild n ausea #30 01/16/25 tablet (Compazine) tabs amiodarone 200 mg tablet (Pacerone) See Rx Instruction s .Route 03/05/25 .COMPLEX #60 tabs apixaban 5 mg tablet (Eliquis) 5 mg PO BID 30 days #60 tabs 03/05/25 glucagon HCl 1 mg solution for 1 mg IM Q20M PRN hypogl ycemia #1 ea 03/05/25 injection (Glucagon (HCl) Emergency Kit) glucometer testing kit #1 ea 03/05/25 pen needle, diabetic 29 gauge x #100 ea 03/06/25/ (Easy Comfort Pen [place]) blood-glucose sensor (Dexcom G7 #3 ea 04/02/25 Sensor device) levothyroxine 50 mcg tablet 50 mcg PO DAILY #30 tabs 0 04/02/25 (Synthroid) blood-glucose,critical systems technician,cont #1 ea 04/03/25 (Dexcom G7 Buffer Automatic) Allergies Allergy/AdvReac Type Severity Reaction Status Date / Time shellfish derived Allergy Intermediate ADR-Vomitin Verified 03/19/25 07:47 g PFSH ED PFSH: Medical History Palpitations KELLEE (obstructive sleep apnea) Dyspnea on exertion Peripheral edema Chest tightness Chest pain CHF (congestive heart failure) Atrial fibrillation HTN (hypertension) Surgical History H/O partial cystectomy Family History Father Congenital heart disease Cancer Lung disease Grandfather Cancer Grandmother Cancer Denies family history of Diabetes CAD (coronary artery disease) Clotting disorder Dementia Chronic kidney disease (CKD) Suicide Anesthesia complication Bleeding disorder Stroke Social History Smoking and tobacco/nicotine status: unknown if used tobacco/nicotine Alcohol intake: current Alcohol intake frequency: few times a month Substance/Drug Use: never Physical Exam Const: COMMON NORMALS: no acute distress GENERAL APPEARANCE: cooperative and comfortable ORIENTATION/CONSCIOUSNESS: Yes awake, Yes oriented to person, Yes oriented to place and Yes oriented to time HENMT: COMMON NORMALS: normocephalic, atraumatic and hearing grossly normal bi laterally HEAD & SCALP: normocephalic and atraumatic Resp: COMMON NORMALS: normal respiratory effort, No retractions and No use of accessory muscles Neuro: SENSORIUM/ORIENTATION: Yes oriented to person, Yes oriented to place and Yes oriented to time Course Vital Signs: Vital signs: Vital Signs Temperature 98.4 F 04/04/25 07:05 Pulse Rate 81 04/04/25 07:05 Respiratory Rate 17 04/04/25 07:05 Blood Pressure 119/83 04/04/25 07:05 Pulse Oximetry 96 04/04/25 07:05 Oxygen Delivery Me thod Room Air 04/04/25 07:05 MDM - General Adult Medical Decision Making Because of the holiday there is a lengthy form for open. I reviewed the notes I did send in the G7 sensor. We look at different ways to get in the G6 sensor fortunately about the warehouse shipping associate's remotely with the sensor as she is also diabetic and she was able to help him program his cell phone to [employer] to the sensors he currently has which made them functional and useful. She instructed him on how to use it and how to use the various features of it on the cell phone carli patient expressed understanding to his warehouse shipping associate and he was discharged home he will be able to use the sensors he was prescribed previously Medical Records I reviewed the patient's medical records. Lab Data I reviewed the patient's lab results. No radiology studies performed this visit Discharge Plan Discharge Patient Disposition: Home Clinical Impression: Type 2 diabetes mellitus Qualifiers: Diabetes mellitus senior care insulin use: with senior care use Diabetes mellitus complication status: without complication Qualified Code(s): E11.9 - Type 2 diabetes mellitus without complications Condition: Stable Prescriptions: No Action omega-3 fatty acids 1,000 mg capsule 1,000 mg PO .qod tamsulosin [Flomax] 0.4 mg capsule 0.4 mg PO BID glucosamine-chondroitin 900 mg tablet 900 mg PO .everyotherday acetaminophen 325 mg capsule 325 mg PO QID PRN (Reason: Pain) metoprolol succinate 100 mg tablet extended release 24 hr 100 mg PO DAILY (DME) Easy Comfort Pen [place] 29 gauge x 3/16 needle See Rx Instructions .Route Qty: 100 3RF Rx Instructions: As directed (DME) Diabetic Shoes with 3 Custom Inserts See Rx Instructions .Route .MEDSUPPLY Qty: 1 0RF Rx Instructions: As directed to HOME furosemide 40 mg tablet See Rx Instructions .ROUTE .COMPLEX Qty: 120 3RF Dose Instruction: TAKE 1 TABLET BY MOUTH EVERY DAY, MAY TAKE ADDITIONAL DOSE NEEDED FOR SWELLING OR SHORTNESS OF BREATH Rx Instructions: TAKE 1 TABLET BY MOUTH EVERY DAY, MAY TAKE ADDITIONAL DOSE NEEDED FOR SWELLING OR SHORTNESS OF BREATH prochlorperazine maleate [Compazine] 10 mg tablet 10 mg PO Q4H PRN (Reason: mild nausea) Qty: 30 3RF (DME) Dexcom G7 Sensor Device See Rx Instructions .ROUTE .MEDSUPPLY Qty: 3 2RF Rx Instructions: change every 10 days levothyroxine [Synthroid] 50 mcg tablet 50 mcg PO DAILY Qty: 30 1RF (DME) Dexcom G7 Buffer Automatic Misc See Rx Instructions .ROUTE .MEDSUPPLY Qty: 1 0RF Rx Instructions: As directed atorvastatin 20 mg tablet 20 mg PO DAILY potassium chloride 20 mEq tablet,ER particles/crystals See Rx Instructions .ROUTE .COMPLEX Rx Instructions: TAKE 1 TABLET BY MOUTH EVERY DAY, MAY TAKE EXTRA tablet with DOSE OF FUROSEMIDE NEEDED FOR ELECTROLYTE DEPLETION. amiodarone [Pacerone] 200 mg Tablet See Rx Instructions .ROUTE .COMPLEX Qty: 60 0RF Rx Instructions: 400mg(2tabs) bid for 3 days, 200mg(1tab) bid for 3 days, 200mg(1tab) daily Eliquis 5 mg tablet 5 mg PO BID 30 Days Qty: 60 0RF glucagon HCl [Glucagon (HCl) Emergency Kit] 1 mg recon soln 1 mg IM Q20M PRN (Reason: hypoglycemia) Qty: 1 0RF Rx Instructions: until target blood sugar attained (DME) glucometer testing kit See Rx Instructions .Route .MEDSUPPLY Qty: 1 0RF Rx Instructions: Glucometer testing kit Lancets #100 Strips #100 Discharge Orders: Discharge ED (Routine); Ordered 04/04/25 Ordered By: Buster Ambriz Referrals: William Black MD [Primary Care Provider, Family Practice] Discharge Diet: Diabetic Discharge Activity: Resume usual activity Patient Instructions: Opioid Safety, Pain Management, Patient Portal & Carli Instructions Activity Restrictions/Additional Instructions: [facility]. It is very important that you follow up as instructed or that you return to the Emergency Department should you have concerns or if your condition changes or worsens in any way. Print Language: Armenian Coding Level of Care Code ED Fishing Rod Trimmer for Gina Beckham
== END 2025-04-04 08:58 | disposition home or self-care (01) ==
PROVIDERS: Emergency Provider Family Medicine; PCP Family Medicine
DX: E11.9 Type 2 diabetes mellitus without complications (principal); I11.0 Hypertensive heart disease with heart failure; I50.9 Heart failure, unspecified; Z79.01 Long term (current) use of anticoagulants
CPT/HCPCS: 99281

== ENCOUNTER 2025-04-15 14:03 | Oncology outpatient (recurring) (ONCR) | payer OTHER, SELFPAY ==
[2025-04-15 14:30] LABS: Hematocrit 45.9 % (37-53); Hemoglobin 15.10 g/dL (11.27-16.99); Mean Corpuscular HGB Conc 32.9 g/dL (30-55); Mean Corpuscular Hemoglobin 29.5 pg (27-33); Mean Corpuscular Volume 89.8 fl (82-101); Nucleated Red Blood Cells % 0 %; Platelet Count 264 10^3/cmm (157-399); Red Blood Count 5.11 10^6/uL (3.85-5.65); White Blood Count 7.70 10^3/uL (3.29-11.43)
[2025-04-15 14:59] LABS: Alanine Aminotransferase 15 U/L (0-41); Albumin Level 3.9 g/dL (3.5-5.2); Alkaline Phosphatase 160 U/L (40-130); Anion Gap 15.3 (5-19); Aspartate Amino Transferase 16 U/L (0-40); Blood Urea Nitrogen 22 mg/dL (8-23); Calcium 10.0 mg/dL (8.5-10.5); Carbon Dioxide 26 mmol/L (22-29); Chloride 96 mmol/L (98-107); Creatinine Clr Calc Pharmacy 120.4867; Free T4 Free Thyroxine 0.15 ng/dL (0.82-1.77); Globulin 3.3 g/dL (1.3-4.6); Glucose 352 mg/dL (65-115); Osmolality Calculated 293 mOsm/kg (285-295); Potassium 4.3 mmol/L (3.5-5.1); Sodium 133 mmol/L (136-145); Thyroid Stimulating Hormone 59.03 uIU/mL (0.27-4.20); Total Protein 7.2 g/dL (6.6-8.7)
== END 2025-05-01 23:59 | disposition home or self-care (01) ==
PROVIDERS: PCP Family Medicine; Visit Provider Internal Medicine Medical Oncology
DX: Z08 Encounter for follow-up examination after completed treatment for malignant neoplasm (principal); Z85.528 Personal history of other malignant neoplasm of kidney; R03.0 Elevated blood-pressure reading, without diagnosis of hypertension; E05.90 Thyrotoxicosis, unspecified without thyrotoxic crisis or storm; R94.6 Abnormal results of thyroid function studies; E10.9 Type 1 diabetes mellitus without complications
CPT/HCPCS: 36415; 80053; 84439; 84443; 84481; 85025

== ENCOUNTER → 2025-05-26 09:20 | Outpatient (BNVA) | payer OTHER, SELFPAY | PROVIDERS: PCP Family Medicine; Referring Provider Internal Medicine Medical Oncology; Visit Provider Internal Medicine | DX: E10.65 Type 1 diabetes mellitus with hyperglycemia (principal); E03.9 Hypothyroidism, unspecified | CPT/HCPCS: 36415; 80053; 80061; 82044; 83036; 84439; 84443 ==

== ENCOUNTER 2025-05-29 12:53 | Outpatient (CLI) | payer OTHER, SELFPAY | END 2025-05-29 12:54 | disposition home or self-care (01) | LOC: SLEEP 12:54 | PROVIDERS: PCP Family Medicine; Referring Provider Family Medicine; Visit Provider Internal Medicine Pulmonary Disease | DX: G47.33 Obstructive sleep apnea (adult) (pediatric) (principal); G47.36 Sleep related hypoventilation in conditions classified elsewhere | CPT/HCPCS: G0399 ==

== ENCOUNTER 2025-06-09 08:14 | Outpatient (CLI) | payer OTHER, SELFPAY ==
[2025-06-09 09:27] LABS: Free T4 Free Thyroxine 0.54 ng/dL (0.82-1.77)
== END 2025-06-09 08:15 | disposition home or self-care (01) ==
LOC: LAB 08:16
PROVIDERS: PCP Family Medicine; Visit Provider Internal Medicine
DX: E03.9 Hypothyroidism, unspecified (principal)
CPT/HCPCS: 36415; 84439

== ENCOUNTER → 2025-07-07 10:02 | Outpatient (BNVA) | payer OTHER, SELFPAY | PROVIDERS: PCP Family Medicine; Referring Provider Internal Medicine Medical Oncology; Visit Provider Internal Medicine | DX: E03.9 Hypothyroidism, unspecified (principal) | CPT/HCPCS: 36415; 84439; 84443 ==

== ENCOUNTER 2025-07-15 06:52 | Oncology outpatient (recurring) (ONCR) | payer OTHER, SELFPAY ==
[2025-07-15] MEDS: iohexol 350 mg/mL 500 mL Btl (per mL) PO (07:11)
[2025-07-15] MEDS: iohexol 350 mg/mL 500 mL Btl (per mL) IV (08:33)
--- NOTE | 2025-07-15 08:45 | CT_ITS ---
WS: [id number] CT CHEST, ABDOMEN AND PELVIS WITH CONTRAST HISTORY: renal cell cancer TECHNIQUE: Contiguous 5 mm axial imaging performed through the chest, abdomen and pelvis with IV contrast, oral contrast has been provided. Coronal and sagittal reformats chest. Coronal and sagittal reformats through the abdomen and pelvis. All CT scans at [facility] use at least one of these dose optimization techniques: automated exposure control; mA and/or kV adjustment per patient size (includes targeted exams where dose is matched to clinical indication); or iterative reconstruction. CONTRAST: Omnipaque 350; 100 mL IV. DLP: 2574.87 mGy.cm COMPARISON: 03/03/2025, radiograph chest 03/03/[address]: Lungs are mildly hyperinflated. Increased pleural fat posteriorly in the lower lung ybarra. No mass identified. No pneumonia. No pericardial or pleural effusions. Heart is very slightly enlarged. No pathologically enlarged lymph nodes. RIGHT hilar lymph node measures 11 mm. Densely calcified subcarinal lymph nodes. Mild atherosclerosis aorta. Normal size pulmonary artery. Small hiatal hernia. Abdomen CT: Liver, spleen and gallbladder are negative. No intrahepatic duct dilatation. Diffuse pancreatic atrophy. Pancreatic atrophy significantly progressed since 10/07/2024. There are 2 splenules in the LEFT upper quadrant. The splenules were present on 10/07/2024 but have changed position due to the surgery. Negative RIGHT kidney. No obstruction or mass. Prior LEFT nephrectomy. No adrenal mass. There is a small amount of fluid in the LEFT nephrectomy surgical bed which is unchanged. No GI tract obstruction. No colitis. No free fluid or adenopathy. No retroperitoneal lymph nodes. Pelvic CT: Minimally distended urinary bladder. No free fluid in the pelvis. CT/CT chest abdpel w/*[id number] IMPRESSION: 1. Status post LEFT nephrectomy. 2. No recurrent mass in the nephrectomy bed. 3. Negative RIGHT kidney. 4. No retroperitoneal adenopathy. 5. No pneumonia. 6. Pancreatic atrophy, new since 10/07/2024, developed since the LEFT nephrectom y. 7. No metastatic implants.
== END 2025-08-01 23:59 | disposition home or self-care (01) ==
LOC: ONCMED 06:54
PROVIDERS: PCP Family Medicine; Visit Provider Internal Medicine Medical Oncology
DX: Z08 Encounter for follow-up examination after completed treatment for malignant neoplasm (principal); Z85.528 Personal history of other malignant neoplasm of kidney; R03.0 Elevated blood-pressure reading, without diagnosis of hypertension; E05.90 Thyrotoxicosis, unspecified without thyrotoxic crisis or storm; R94.6 Abnormal results of thyroid function studies; E10.9 Type 1 diabetes mellitus without complications; C64.9 Malignant neoplasm of unspecified kidney, except renal pelvis
CPT/HCPCS: 71260; 74177

== ENCOUNTER 2025-07-25 11:53 | Emergency (ER) | payer OTHER, SELFPAY ==
--- NOTE | 2025-07-25 11:59 | CT_ITS ---
WS: [id number] CT HEAD TECHNIQUE: Noncontrast CT of the head obtained from the skullbase to the vertex. CLINICAL INFORMATION: Symptoms of acute stroke COMPARISON: 02/28/2025 DLP: [address] scans at [facility] use at least one of these dose optimization techniques: automated exposure control; mA and/or kV adjustment per patient size (includes targeted exams where dose is matched to clinical indication); or iterative reconstruction. FINDINGS: No evidence of intracranial hemorrhage or mass effect. Ventricular system and basal cisterns are patent. Mild small vessel changes with mild parenchymal volume loss. No extra-axial fluid collections. No evidence of mass or mass effect. Vascular calcification. Chronic LEFT maxillary sinusitis with complete opacification LEFT maxillary sinus with inspissated secretions. Opacification of the LEFT ostiomeatal unit and LEFT ethmoid air cells extending to the LEFT frontoethmoidal recess. This is similar to previous. CT/CT head thrombolytic [id number] IMPRESSION: 1. No evidence of intracranial hemorrhage or mass effect. 2. Mild small vessel changes with mild parenchymal volume loss. 3. Vascular calcification. 4. Chronic LEFT maxillary sinusitis with inspissated secretions and opacificat ion of the LEFT ostiomeatal unit 5. No acute intracranial findings. Notified Qing Cadet MD at 07/25/2025 12:13 PM.
--- OUTSIDE RECORDS SUMMARY | 2025-07-25 12:03 | XMS_ITS | Clinical Summary ---
Author Organization [facility] Address [address] [place] [address] Phone Care Team Providers Care Custodial Foreman Name Role Phone Unavailable Primary Care Provider Unavailabl e Allergies No known active allergies Medications furosemide (LASIX ORAL) Take 40 mg by mouth daily. Active metformin HCl (METFORMIN ORAL) Take 1,000 mg by mouth 2 times daily. Active semaglutide (OZEMPIC SUBCUT) Inject 2 mg by subcutaneous injection every 7 days. Active VALSARTAN ORAL Take by mouth daily. Active potassium CHLORIDE (KAYCIEL) 20 mEq/15 mL solution 20 mEq daily. Active apixaban (Eliquis) 5 mg tablet Take 5 mg by mouth 2 times daily. Active atorvastatin (LIPITOR) 20 mg tablet Take 20 mg by mouth daily. Active metoprolol succinate (TOPROL XL) 100 mg Extended Release 24 hour tablet Take 100 mg by mouth daily. Active Fish Oil-Stickney-3 Fatty Acids 360-1,200 mg Capsule Take 1 Capsule by mouth. Active glucosamine-cho ndroitin (ARTHX DS) 500-400 mg Capsule Take 1 Capsule by mouth. Active tamsulosin (FLOMAX) 0.4 mg capsule Take 2 Capsules (0.8 mg) by mouth daily. 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 Gender Identity Not on file Sexual Orientation Not on file Last Filed Vital Signs Vital Sign Reading Time Taken Comments Blood Pressure 130/82 12/22/2023 1:19 PM CDT Pulse 76 12/22/2023 1:19 PM CDT Temperature - - Respiratory Rate - - Oxygen Saturation - - Inhaled Oxygen Concentration - - Weight 185.5 kg (409 lb) 12/22/2023 1:19 PM CDT Height 193 cm (6' 4 ) 12/22/2023 1:19 PM CDT Body Mass Index 49.79 12/22/2023 1:19 PM CDT Plan of Treatment Health Maintenance Due Date Last Done Comments DIABETES ANNUAL FOOT EXAM 1979 DIABETES ANNUAL RETINAL EXAM 1979 DIABETES MICROALBUMIN ANNUAL SCREEN 1979 LDL CHOLESTEROL ANNUAL 1979 DTAP/TDAP/TD VACCINES (1 - Tdap) 1980 COLORECTAL SCREENING 2006 Colorectal Cancer Screening 2006 FIT-DNA Q 3 years 2006 FIT/FOBT Q 1 year 2006 Flex Sig/CT Colonography Q 5 years 2006 RSV VACCINE (60+ or ) (1 - Risk 50-74 years 1-dose series) 2011 ZOSTER VACCINE (1 of 2) 2011 INFLUENZA VACCINE (#1) 2025 DIABETES HBA1C Q 6 MONTHS 05/04/2025 11/04/2024, 06/2024 Insurance
--- NOTE | 2025-07-25 12:11 | ECG_ITS ---
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 Measurements Intervals Crane Rate: 73 P: 0 MA: 0 QRS: -11 QRSD: 107 T: 49 QT: 380 QTc: 420 Interpretive Statements ATRIAL FIBRILLATION ABNORMAL RHYTHM ECG Compared to ECG 02/28/2025 21:39:00 Myocardial infarct finding no longer present T-wave abnormality no longer present Possible ischemia no longer present Electronically Signed On 07-25-2025 15:23:31 CDT by Cayden Philippe M.D. [email or web address] [id number]
--- NOTE | 2025-07-25 12:15 | W.ED.NEUROSD ---
HPI - Neuro Symptoms/Deficit General: Chief Complaint: Neuro Symptoms/Deficit Stated Complaint: tingling in face Time Seen by Provider: 07/25/25 11:59 Source: patient Mode of arrival: ambulatory Limitations: no limitations History of Present Illness: 65-year-old male states that he had some tingling in his face last night woke up this morning had weakness to the right side of his face. Has had right facial droop states that he has felt like he has been dripping out of his right mouth and also having hard time shutting his right eye. He denies any other symptoms denies slurred speech denies any weakness he denies any headache denies any fever Related Data Home Medications ?Medication ?Instructions ?Recorded ?Confirmed omega-3 fatty acids 1,000 mg 1,000 mg PO .qod 05/03/22 07/22/25 capsule acetaminophen 325 mg capsule 325 mg PO QID PRN Pain 01/16/25 07/22/25 antiarthritic combination no.2 900 900 mg PO .everyotherday 01/16/25 07/22/25 mg tablet (glucosamine-chondroitin) tamsulosin 0.4 mg capsule (Flomax) 0.4 mg PO BID 01/16/25 07/22/25 atorvastatin 20 mg tablet 20 mg PO DAILY 02/28/25 07/22/25 metoprolol succinate 50 mg 50 mg PO DAILY 05/13/25 07/22/25 tablet,extended release 24 hr Previous Rx's ?Medication ?Instructions ?Recorded Diabetic Shoes with 3 Custom #1 ea 12/22/23 Inserts prochlorperazine maleate 10 mg 10 mg PO Q4H PRN mild nausea #30 01/16/25 tablet (Compazine) tabs amiodarone 200 mg tablet (Pacerone) See Rx Instructions .Route 03/05/25 .COMPLEX #60 tabs apixaban 5 mg tablet (Eliquis) 5 mg PO BID 30 days #60 tabs 03/05/25 glucagon HCl 1 mg solution for 1 mg IM Q20M PRN hypoglycemia #1 ea 03/05/25 injection (Glucagon (HCl) Emergency Kit) glucometer testing kit #1 ea 03/05/25 pen needle, diabetic 31 gauge x #100 ea 06/12/25/16 (TechLITE Pen Needle) furosemide 40 mg tablet See Rx Instructions .Route 06/26/25 .COMPLEX #120 tabs metoprolol succinate 100 mg See Rx Instructions .Route 06/26/25 tablet,extended release 24 hr .COMPLEX #90 tabs potassium chloride 20 mEq See Rx Instructions .Route 06/26/25 tablet,extended release .COMPLEX #90 tabs insulin aspart U-100 100 unit/mL See Rx Instructions .Route 07/14/25 subcutaneous solution (Novolog .COMPLEX #130 mL U-100 Insulin aspart) blood sugar diagnostic #100 ea 07/23/25 blood sugar diagnostic (Accu-Chek #100 ea 07/23/25 Guide test strips) blood-glucose meter #1 ea 07/23/25 lancets #100 ea 07/23/25 levothyroxine 300 mcg tablet 300 mcg PO DAILY #90 tabs 07/23/25 (Synthroid) tirzepatide 2.5 mg/0.5 mL 2.5 mg (0.5 mL) SUBCUT Q7D #2 mL 07/23/25 subcutaneous pen injector (Mounjaro) prednisone 50 mg tablet 50 mg PO DAILY #5 tabs 07/25/25 Allergies Allergy/AdvReac Type Severity Reaction Status Date / Time shellfish derived Allergy Intermediate ADR-Vomitin Verified 05/13/25 11:36 g PFSH ED PFSH: Medical History Palpitations KELLEE (obstructive sleep apnea) Dyspnea on exertion Peripheral edema Chest tightness Chest pain CHF (congestive heart failure) Atrial fibrillation HTN (hypertension) Surgical History H/O partial cystectomy Family History Father Congenital heart disease Cancer Lung disease Grandfather Cancer Grandmother Cancer Denies family history of Diabetes CAD (coronary artery disease) Clotting disorder Dementia Chronic kidney disease (CKD) Suicide Anesthesia complication Bleeding disorder Stroke Social History Smoking and tobacco/nicotine status: never used tobacco/nicotine Alcohol intake: current Alcohol intake frequency: few times a month Substance/Drug Use: never NIH stroke score NIHSS: Level Of Consciousness - 1a: 0 Level Of Consciousness Questions - 1b: Both Correct Level Of Consciousness Commands - 1c: Both Correct Best Gaze - 2: Normal Visual Bhardwaj - 3: No Visual Loss Facial Palsy - 4: Partial Paralysis Motor Arm Right - 5: No Drift Motor Arm Left - 5: No Drift Motor Leg Right - 6: No Drift Motor Leg Left - 6: No Drift Limb Ataxia - 7: Absent Sensory - 8: Normal Best Language - 9: No Aphasia Dysarthia - 10: Normal Extinction And Inattention - 11: 0 Score: Total Score: 2 Physical Exam Const: COMMON NORMALS: no acute distress, patient oriented x3 and healthy appearing HENMT: COMMON NORMALS: normocephalic and atraumatic HEAD & SCALP: normocephalic and atraumatic Eye: COMMON NORMALS: Equal, round and reactive pupils present and EOMs intact bilaterally PUPIL: Yes Equal, round and reactive pupils present Neck/C-Spine: COMMON NORMALS: full ROM and supple Chest: COMMONS NORMALS: normal inspection of the chest Resp: COMMON NORMALS: normal respiratory effort, No retractions, No use of accessory muscles and clear to auscultation bilaterally AUSCULTATION: clear to auscultation bilaterally Cardio: COMMON NORMALS: regular rate, regular rhythm and No murmurs present (Cardio) RATE: regular rate RHYTHM: regular rhythm Extremity: COMMON NORMALS: normal to inspection and full ROM Neuro: COMMON NORMALS: patient oriented x3 and moves all extremities SPEECH: speech normal GAIT: Yes Normal gait present MOTOR EXAM: 5/5 motor strength present throughout OTHER: Right sided facial paralysis Psych: COMMON NORMALS: mental status grossly normal, Normal thought process present and cooperative THOUGHT PROCESS: Normal thought process present Skin: COMMON NORMALS: no rashes or lesions noted and no wounds GENERAL SKIN EXAM: no rashes or lesions noted Course Vital Signs: Vital signs: Vital Signs Pulse Rate 64 07/25/25 12:42 Respiratory Rate 17 07/25/25 12:16 Blood Pressure 174/90 07/25/25 12:42 Pulse Oximetry 96 07/25/25 12:42 MDM - Neuro Symptoms/Deficit Medical Decision Making Patient presents with right sided facial droop started when he woke up. He has no other neurologic findings here. Differential includes Lopez's palsy, stroke, intracerebral hemorrhage. CT here was negative he has no signs of acute stroke symptoms are classic with Lopez's palsy here. Did go over the findings with him along with his EKG that showed normal sinus rhythm heart rate [address] elevation QRS 107 QTc 405. I informed him we will place him on 5 days of steroids he is a diabetic and informed him he needs to watch his sugars very closely. Also informed him that he can get drying of his right eye and recommended using artificial tears and to tape his eye shut at night he is to return if worsening he understands agrees to plan. Medical Records I reviewed the patient's medical records. Lab Data I reviewed the patient's lab results. 07/25/25 12:10 07/25/25 12:[address] 07/25/25 11:59 IMPRESSION: 1. No evidence of intracranial hemorrhage or mass effect. 2. Mild small vessel changes with mild parenchymal volume loss. 3. Vascular calcification. 4. Chronic LEFT maxillary sinusitis with inspissated secretions and opacification of the LEFT ostiomeatal unit 5. No acute intracranial findings. Notified Qing Cadet MD at 07/25/2025 12:13 PM. Laboratory Results WBC 7.37 10^3/uL (3.29-11.43) 07/25/25 12:10 RBC 4.73 10^6/uL (3.85-5.65) 07/25/25 12:10 Hgb 15.00 g/dL (11.27-16.99) 07/25/25 12:10 Hct 46.4 % (37-53) 07/25/25 12:10 MCV 98.1 fl (82-101) 07/25/25 12:10 MCH 31.7 pg (27-33) 07/25/25 12:10 MCHC 32.3 g/dL (30-55) 07/25/25 12:10 RDW 14.4 % (12.1-15.1) 07/25/25 12:10 Plt Count 222 10^3/cmm (157-399) 07/25/25 12:10 MPV 10.5 fL (7.4-10.4) H 07/25/25 12:10 Neut % (Auto) 60.5 % 07/25/25 12:10 Lymph % (Auto) 25.0 % 07/25/25 12:10 [place] % (Auto) 9.6 % 07/25/25 12:10 Eos % (Auto) 2.7 % 07/25/25 12:10 Baso % (Auto) 1.1 % 07/25/25 12:10 Neut # (Auto) 4.46 10^3/uL (1.8-7.7) 07/25/25 12:10 Lymph # (Auto) 1.8 10^3/uL (0.8-4.8) 07/25/25 12:10 [place] # (Auto) 0.7 10^3/uL (0.2-0.9) 07/25/25 12:10 Eos # (Auto) 0.2 10^3/uL (0.0-0.8) 07/25/25 12:10 Baso # (Auto) 0.1 10^3/uL (0.0-0.1) 07/25/25 12:10 Nucleated RBC % (auto) 0 % 07/25/25 12:10 Nucleated RBCs # 0.0 /100WBC 07/25/25 12:10 PT 14.60 SECONDS (12.1-14.9) 07/25/25 12:10 INR 1.07 (0.8-1.2) 07/25/25 12:10 APTT 33.6 SECONDS (23.9-36.7) 07/25/25 12:10 Sodium 135 mmol/L (136-145) L 07/25/25 12:10 Potassium 4.9 mmol/L (3.5-5.1) 07/25/25 12:10 Chloride 102 mmol/L (98-107) 07/25/25 12:10 Carbon Dioxide 21 mmol/L (22-29) L 07/25/25 12:10 Anion Gap 16.9 (5-19) 07/25/25 12:10 BUN 27 mg/dL (8-23) H 07/25/25 12:10 Creatinine 1.4 mg/dL (0.7-1.2) H 07/25/25 12:10 GFR Calculation 51.0 mL/min (90-130) L 07/25/25 12:10 Glucose 165 mg/dL (65-115) H 07/25/25 12:10 POC Glucose 149 mg/dL (70-110) H 07/25/25 12:10 Calculated Osmolality 289 mOsm/kg (285-295) 07/25/25 12:10 Calcium 9.6 mg/dL (8.5-10.5) 07/25/25 12:10 Total Bilirubin 0.5 mg/dL (0.15-1.2) 07/25/25 12:10 AST 23 U/L (0-40) 07/25/25 12:10 ALT 17 U/L (0-41) 07/25/25 12:10 Alkaline Phosphatase 94 U/L (40-130) 07/25/25 12:10 Total Protein 6.6 g/dL (6.6-8.7) 07/25/25 12:10 Albumin 3.8 g/dL (3.5-5.2) 07/25/25 12:10 Globulin 2.8 g/dL (1.3-4.6) 07/25/25 12:10 All radiology interpretation(s) finalized by discharge EKG Data EKG 1: I personally reviewed and interpreted this EKG as follows: EKG interpretation date: 07/25/25 EKG interpretation time: 12:11 Interpretation: afib hr [address] elevation qrs 107 qtc 405 Discharge Plan Discharge Patient Disposition: Home Clinical Impression: Lopez's palsy Condition: Stable Prescriptions: New prednisone 50 mg tablet 50 mg PO DAILY Qty: 5 0RF No Action omega-3 fatty acids 1,000 mg capsule 1,000 mg PO .qod metoprolol succinate 50 mg tablet extended release 24 hr 50 mg PO DAILY tamsulosin [Flomax] 0.4 mg capsule 0.4 mg PO BID glucosamine-chondroitin 900 mg tablet 900 mg PO .everyotherday acetaminophen 325 mg capsule 325 mg PO QID PRN (Reason: Pain) (DME) Accu-Chek Guide test strips Strip See Rx Instructions .Route Qty: 100 3RF Rx Instructions: to check blood glucose levels up to 6 times each day Mounjaro 2.5 mg/0.5 mL pen injector 2.5 mg SUBCUT Q7D Qty: 2 0RF levothyroxine [Synthroid] 300 mcg tablet 300 mcg PO DAILY Qty: 90 3RF (DME) blood sugar diagnostic Strip See Rx Instructions .Route Qty: 100 3RF Rx Instructions: up to 6 times per day (DME) blood-glucose meter Kit See Rx Instructions .Route Qty: 1 0RF Rx Instructions: to check blood glucose (DME) lancets Misc See Rx Instructions .Route Qty: 100 6RF Rx Instructions: for capillary puncture (DME) Diabetic Shoes with 3 Custom Inserts See Rx Instructions .Route .MEDSUPPLY Qty: 1 0RF Rx Instructions: As directed to HOME prochlorperazine maleate [Compazine] 10 mg tablet 10 mg PO Q4H PRN (Reason: mild nausea) Qty: 30 3RF (DME) pen needle, diabetic [TechLITE Pen Needle] 31 gauge x 3/16 needle See Rx Instructions .ROUTE .COMPLEX Qty: 100 2RF Dose Instruction: USE as directed Rx Instructions: USE as directed potassium chloride 20 mEq tablet extended release See Rx Instructions .ROUTE .COMPLEX Qty: 90 3RF Dose Instruction: TAKE 1 TABLET BY MOUTH EVERY DAY, MAY TAKE EXTRA tablet with DOSE OF FUROSEMIDE NEEDED FOR ELECTROLYTE DEPLETION Rx Instructions: TAKE 1 TABLET BY MOUTH EVERY DAY, MAY TAKE EXTRA tablet with DOSE OF FUROSEMIDE NEEDED FOR ELECTROLYTE DEPLETION metoprolol succinate 100 mg tablet extended release 24 hr See Rx Instructions .ROUTE .COMPLEX Qty: 90 3RF Dose Instruction: TAKE 1 TABLET BY MOUTH EVERY DAY Rx Instructions: TAKE 1 TABLET BY MOUTH EVERY DAY furosemide 40 mg tablet See Rx Instructions .ROUTE .COMPLEX Qty: 120 3RF Dose Instruction: TAKE 1 TABLET BY MOUTH EVERY DAY. MAY take additional DOSE NEEDED FOR swelling or SHORTNESS OF BREATH Rx Instructions: TAKE 1 TABLET BY MOUTH EVERY DAY. MAY take additional DOSE NEEDED FOR swelling or SHORTNESS OF BREATH insulin aspart U-100 [Novolog U-100 Insulin aspart] 100 unit/mL solution See Rx Instructions .ROUTE .COMPLEX MDD 130 Qty: 130 1RF Rx Instructions: via insulin pump; atorvastatin 20 mg tablet 20 mg PO DAILY amiodarone [Pacerone] 200 mg Tablet See Rx Instructions .ROUTE .COMPLEX Qty: 60 0RF Rx Instructions: 400mg(2tabs) bid for 3 days, 200mg(1tab) bid for 3 days, 200mg(1tab) daily Eliquis 5 mg tablet 5 mg PO BID 30 Days Qty: 60 0RF glucagon HCl [Glucagon (HCl) Emergency Kit] 1 mg recon soln 1 mg IM Q20M PRN (Reason: hypoglycemia) Qty: 1 0RF Rx Instructions: until target blood sugar attained (DME) glucometer testing kit See Rx Instructions .Route .MEDSUPPLY Qty: 1 0RF Rx Instructions: Glucometer testing kit Lancets #100 Strips #100 Discharge Orders: Discharge ED (Routine); Ordered 07/25/25 Ordered By: Qing Cadet Referrals: William Black MD [Primary Care Provider, Family Practice] - 4-7 days Discharge Diet: Advance as tolerated Discharge Activity: Resume usual activity Patient Instructions: Lopez Palsy (ED) Print Language: Lithuanian Coding Level of Care Code ED Thread Laster for Gina Beckham
[2025-07-25 12:16] VITALS: BP 128/78; PULSE 62; RESP 17; O2SAT 98
[2025-07-25 12:19] LABS: Hematocrit 46.4 % (37-53); Hemoglobin 15.00 g/dL (11.27-16.99); Mean Corpuscular HGB Conc 32.3 g/dL (30-55); Mean Corpuscular Hemoglobin 31.7 pg (27-33); Mean Corpuscular Volume 98.1 fl (82-101); Nucleated Red Blood Cells % 0 %; Platelet Count 222 10^3/cmm (157-399); Red Blood Count 4.73 10^6/uL (3.85-5.65); White Blood Count 7.37 10^3/uL (3.29-11.43)
[2025-07-25 12:30] LABS: INR 1.07 (0.8-1.2); Prothrombin Time 14.60 SECONDS (12.1-14.9)
[2025-07-25 12:31] LABS: Partial Thromboplastin Time 33.6 SECONDS (23.9-36.7)
[2025-07-25 12:40] LABS: Alanine Aminotransferase 17 U/L (0-41); Albumin Level 3.8 g/dL (3.5-5.2); Alkaline Phosphatase 94 U/L (40-130); Blood Urea Nitrogen 27 mg/dL (8-23); Calcium 9.6 mg/dL (8.5-10.5); Carbon Dioxide 21 mmol/L (22-29); Chloride 102 mmol/L (98-107); Creatinine Clr Calc Pharmacy 97.9528; Globulin 2.8 g/dL (1.3-4.6); Glucose 165 mg/dL (65-115); Osmolality Calculated 289 mOsm/kg (285-295); Sodium 135 mmol/L (136-145); Total Protein 6.6 g/dL (6.6-8.7)
[2025-07-25 12:42] VITALS: BP 174/90; PULSE 64; O2SAT 96
[2025-07-25 12:42] LABS: Anion Gap 16.9 (5-19); Aspartate Amino Transferase 23 U/L (0-40); Potassium 4.9 mmol/L (3.5-5.1)
[2025-07-25 12:47] VITALS: BP 135/100; PULSE 76; RESP 14; O2SAT 95
== END 2025-07-25 12:53 | disposition home or self-care (01) ==
PROVIDERS: Emergency Provider Emergency Medicine; PCP Family Medicine
DX: G51.0 Bell's palsy (principal); Z79.4 Long term (current) use of insulin; Z79.01 Long term (current) use of anticoagulants; I11.0 Hypertensive heart disease with heart failure; I50.9 Heart failure, unspecified
CPT/HCPCS: 36416; 70450; 80053; 82962; 85025; 85610; 85730; 93005; 99284

== ENCOUNTER 2025-09-12 07:14 | Oncology outpatient (recurring) (ONCR) | payer OTHER, SELFPAY ==
--- NOTE | 2025-09-12 07:45 | USCV_ITS ---
Harvey Li Age: 65 Gender: M : 1960 Exam Date: 09/12/2025 07:26 Ordering Phys: Manju Nelson NP Technologist: Exam Location: [facility] [place]: stenosis Risk Factors: Previous Vascular Surgery: Right Brachial BP: / Left Brachial BP: / Right Left Velocity (cm/s) Spectral Plaque Velocity (cm/s) Spectral Plaque Syst/Diast Broadening Syst/Diast Broadening 72.70/ 16.80 Prox CCA 86.00 / 18.50 89.50/ 20.70 Mid CCA 105.50/ 23.30 68.00/ 18.60 Distal CCA 58.90 / 17.10 55.80/ 19.10 Prox ICA 42.50 / 19.60 58.50/ 20.80 Mid ICA 53.10 / 19.30 47.60/ 19.20 Distal ICA 45.90 / 19.60 49.70 ECA 66.70 0.80 ICA/CCA 0.70 Antegrade Vertebral Antegrade 48.50/ 12.50 cm/s 47.60/ 12.20 cm/s Tri Subclavian Tri 91.60 102.5 0 FINDINGS Comparison:. 03/02/25 No significant elevation of systolic or diastolic velocities. Waveforms are normal. Minimal plaque at the bifurcations. CONCLUSIONS No interval change in stenosis since prior exam. Bilateral ICA stenosis less than 50%. Minimal carotid atherosclerosis. Dr. Cynthia Lewis DO (Electronically Signed) Final Date: 12 September 2025 08:08 S
== END 2025-10-01 23:59 | disposition home or self-care (01) ==
LOC: RAD 07:15 → ONCMED 09:23
PROVIDERS: PCP Family Medicine; Visit Provider Internal Medicine Medical Oncology
DX: I65.23 Occlusion and stenosis of bilateral carotid arteries (principal)
CPT/HCPCS: 93880